=== PATIENT | female | born 1950 | race African-American/Black ===

== ENCOUNTER → 2017-05-16 | Outpatient (CLI) | payer OTHER ==
[2016-11-18 12:27] VITALS: BP 199/95
--- NOTE | 2017-05-16 12:48 | RAD ---
HISTORY: COPD Study: Chest two-view Comparison: November 23, 2016 Findings: The heart is within normal limits in size. The aorta is mildly ectatic. The shawna are normal. The luis enrique gs are free of acute alveolar infiltrates. No pleural effusions are identified. There is mild peribr onchial thickening consistent with bronchitis. The bony thorax is unremarkable peer E IMPRESSION: Mild peribronchial thickening consistent with bronchitis Reported By:
[2017-05-16 12:52] LABS: BASOPHILS % (AUTO) 0.8 % (0.2-1.0); EOSINOPHILS # (AUTO) 0.2 x10^3/uL (0.0-0.2); EOSINOPHILS % (AUTO) 2.8 % (0.9-2.9); HEMATOCRIT 41.6 % (36.0-47.0); HEMOGLOBIN 13.8 g/dL (12.0-16.0); LYMPHOCYTES # (AUTO) 1.7 X10^3/uL (1.3-2.9); LYMPHOCYTES % (AUTO) 30.4 % (21.0-51.0); MEAN CORPUSCULAR HEMOGLOBIN 27.9 pg (27.0-34.0); MEAN CORPUSCULAR HGB CONC 33.2 g/dL (33.0-35.0); MEAN CORPUSCULAR VOLUME 84.2 fL (80.0-100.0); MEAN PLATELET VOLUME 8.5 fL (7.4-11.0); MICROALBUMIN,URINE 35.5 mg/L; MONOCYTES # (AUTO) 0.5 x10^3/uL (0.3-0.8); MONOCYTES % (AUTO) 8.4 % (0.0-13.0); NEUTROPHILS # (AUTO) 3.3 x10^3/uL (2.2-4.8); NEUTROPHILS % (AUTO) 57.6 % (42.0-75.0); PLATELET COUNT 302 X10^3/uL (150.0-450.0); RED BLOOD COUNT 4.94 X10^6/uL (3.5-5.4); RED CELL DISTRIBUTION WIDTH 14.3 % (11.6-16.5); RETICULOCYTE % 0.53 % (0.8-2.2); WHITE BLOOD COUNT 5.7 X10^3/uL (3.6-10.0)
[2017-05-16 13:00] LABS: CREATININE,URINE 425.42 mg/dL (29-226)
[2017-05-16 13:07] LABS: ALANINE AMINOTRANSFERASE 20 Units/L (12-78); ALBUMIN 3.1 g/dL (3.4-5.0); ALKALINE PHOSPHATASE 67 Units/L (46-116); ASPARTATE AMINO TRANSFERASE 17 Units/L (15-37); BLOOD UREA NITROGEN 14 mg/dL (7-18); CALCIUM 9.4 mg/dL (8.5-10.1); CARBON DIOXIDE 32.1 mmol/L (21-32); CHLORIDE 105 mmol/L (98-107); CHOL/HDL RATIO 2.7 (0.0-5.0); CHOLESTEROL 154 mg/dL (0-200); COR CA(FOR HYPOALB) 10.1 mg/dL (8.5-10.1); COR NA(FOR HYPERGLY) 146 mmol/L (136-145); GLUCOSE 137 mg/dL (65-99); HDL CHOLESTEROL 57 mg/dL (40-60); SODIUM 145 mmol/L (136-145); T4 (THYROXINE) 8.2 ug/dL (4.7-13.3); TOTAL PROTEIN 8.8 g/dL (6.4-8.2); TRIGLYCERIDES 54 mg/dL (0-150); TSH (3RD GENERATION) 1.731 uIU/mL (0.358-3.74); eGFR BLACK RACES > 60 (>60); eGFR NON BLACK RACES > 60 (>60)
== END ==
LOC: LAB 11:58
PROVIDERS: ATTEND Nurse Practitioner Family
DX: E78.2 Mixed hyperlipidemia (principal); I10 Essential (primary) hypertension; J44.9 Chronic obstructive pulmonary disease, unspecified
CPT/HCPCS: 36415; 71020; 80053; 80061; 82043; 84436; 84443; 85025; 85045

== ENCOUNTER → 2017-05-18 | Outpatient (CLI) | payer OTHER ==
[2016-11-18 12:27] VITALS: BP 199/95
--- NOTE | 2017-05-18 13:03 | MG ---
Examination: Bilateral screening mammogram. Clinical history: Routine screening. Technique: Digital CC and MLO views of both breasts were obtained. Computer aided detection analysis was performed and used during the interpretation. Comparison: 05/05/2015. Findings: The breasts are composed predominantly of adipose tissue. A benign-appearing calcification is presen t in the left breast. Vascular calcifications are noted in the breasts bilaterally. No suspicious mass, area of architectural distortion or suspicious cluster of microcalcifications is noted. Impression: 1. No mammographic evidence of malignancy. BI-RADS category 2-benign findings. Recommend routine annual screening mammogram. Diagnostic CAD was utilized and reviewed. * 0 (ZERO) - ASSESSMENT INCOMPLETE; ADDITIONAL IMAGING IS NEEDED. * 0C - ASSESSMENT INCOMPLETE, NEEDS ADDITIONAL IMAGING EVALUATION AND/OR PRIOR MAMMOGRAMS FOR COMPAR SURESH. * 1/1 (ONE) - NEGATIVE. * 2/II (TWO) - BENIGN FINDINGS. * 3/III (THREE) - PROBABLY BENIGN FINDING; SHORT INTERVAL FOLLOW-UP SUGGESTED. * 4/IV (FOUR) - SUSPICIOUS ABNORMALITY; BIOPSY SHOULD BE CONSIDERED. * 5/V - HIGHLY SUSPICIOUS OF MALIGNANCY; BIOPSY SHOULD BE PERFORMED. * 6/IV - KNOWN BIOPSY PROVEN MALIGNANCY-APPROPRIATE ACTION SHOULD BE TAKEN. A NEGATIVE X-RAY REPORT SHOULD NOT DELAY BIOPSY IF A DOMINANT OR CLINICALLY SUSPICIOUS MASS IS PRESENT; 4 TO 8 PERCENT OF CANCERS ARE NOT IDENTIFIED BY X-RAY. A NEGATIVE REPORT MAY REINFORCE THE CLINICAL IMPRESSION. ADENOSIS AND DENSE BREASTS MAY OBSCURE AN UNDERLYING NEOPLASM. Reported By:
== END ==
LOC: RAD 09:58
PROVIDERS: ATTEND Nurse Practitioner Family
DX: Z12.31 Encounter for screening mammogram for malignant neoplasm of breast (principal)
CPT/HCPCS: 77067

== ENCOUNTER → 2017-06-20 | Outpatient (CLI) | payer OTHER ==
[2016-11-18 12:27] VITALS: BP 199/95
[2017-06-20 11:54] LABS: BASOPHILS # (AUTO) 0.1 X10^3/uL (0.0-0.1); BASOPHILS % (AUTO) 0.9 % (0.2-1.0); EOSINOPHILS # (AUTO) 0.1 x10^3/uL (0.0-0.2); EOSINOPHILS % (AUTO) 2.1 % (0.9-2.9); HEMATOCRIT 40.7 % (36.0-47.0); HEMOGLOBIN 13.5 g/dL (12.0-16.0); LYMPHOCYTES # (AUTO) 1.9 X10^3/uL (1.3-2.9); LYMPHOCYTES % (AUTO) 32.7 % (21.0-51.0); MEAN CORPUSCULAR HEMOGLOBIN 27.7 pg (27.0-34.0); MEAN CORPUSCULAR HGB CONC 33.2 g/dL (33.0-35.0); MEAN CORPUSCULAR VOLUME 83.7 fL (80.0-100.0); MEAN PLATELET VOLUME 8.8 fL (7.4-11.0); MONOCYTES # (AUTO) 0.4 x10^3/uL (0.3-0.8); MONOCYTES % (AUTO) 7.1 % (0.0-13.0); NEUTROPHILS # (AUTO) 3.4 x10^3/uL (2.2-4.8); NEUTROPHILS % (AUTO) 57.2 % (42.0-75.0); PLATELET COUNT 323 X10^3/uL (150.0-450.0); RED BLOOD COUNT 4.86 X10^6/uL (3.5-5.4); RED CELL DISTRIBUTION WIDTH 14.5 % (11.6-16.5); WHITE BLOOD COUNT 5.9 X10^3/uL (3.6-10.0)
[2017-06-20 12:01] LABS: HEMOGLOBIN A1C 6.5 % (4.5-6.2)
[2017-06-20 12:04] LABS: ALBUMIN 3.2 g/dL (3.4-5.0); BLOOD UREA NITROGEN 11 mg/dL (7-18); CALCIUM 9.2 mg/dL (8.5-10.1); CARBON DIOXIDE 30.6 mmol/L (21-32); CHLORIDE 105 mmol/L (98-107); COR CA(FOR HYPOALB) 9.8 mg/dL (8.5-10.1); COR NA(FOR HYPERGLY) 145 mmol/L (136-145); GLUCOSE 128 mg/dL (65-99); PHOSPHORUS 3.5 mg/dL (2.6-4.7); SODIUM 144 mmol/L (136-145); eGFR BLACK RACES > 60 (>60); eGFR NON BLACK RACES > 60 (>60)
--- NOTE | 2017-06-20 12:34 | US ---
STUDY: RENAL ULTRASOUND History: CKD. Comparison: None. Technique: Multiple corbett scale and color flow Doppler images of the kidneys were obtained. The rebeca on of the urinary bladder was evaluated. Findings: The right kidney is normal in size and echotexture measuring 9.5 x 4.5 x 6.6 cm. Right renal cortex measures 1.8 cm. There is no evidence of mass, nephrolithiasis, or hydronephrosis. The left kidney is decreased in size and normal in echotexture measuring 7.6 x 3.7 x 5.6 cm. Left re nal cortex measures 1.7 cm. There is no evidence of mass, nephrolithiasis, or hydronephrosis. Color flow imaging shows normal arterial and venous blood flow to and from both kidneys. The urinary bladder was incompletely distended. IMPRESSION: 1. Small left kidney. Otherwise, unremarkable renal ultrasound. Reported By:
[2017-06-20 15:44] LABS: CREATININE,URINE 259.51 mg/dL (29-226)
[2017-06-23 06:15] LABS: ALDOSTERONE 6.4 ng/dL; ANTI-NUCLEAR ANTIBODY TEST Detected (None Detected)
[2017-06-23 11:22] LABS: KAPPA LIGHT CHAINS 4.16 mg/dL (0.33-1.94); LAMBDA LIGHT CHAIN 2.97 mg/dL (0.57-2.63)
[2017-06-23 14:01] LABS: NORMETANEPHRINE 0.55
[2017-06-23 14:02] LABS: METANEPHRINE 0.11
[2017-06-26 06:47] LABS: ANA PATTERN SPECKLED
[2017-06-27 06:10] LABS: RENIN ACTIVITY <0.1 ng/mL/hr
== END | disposition home or self-care (01) | DRG 684 ==
LOC: RAD 10:47
PROVIDERS: ATTEND Internal Medicine
DX: I12.9 Hypertensive chronic kidney disease with stage 1 through stage 4 chronic kidney disease, or unspecified chronic kidney disease (principal); N18.3 Chronic kidney disease, stage 3 (moderate)
CPT/HCPCS: 36415; 76770; 80069; 82088; 82570; 83036; 83835; 83883; 84157; 84244; 85025; 86308

== ENCOUNTER → 2017-06-28 | Outpatient (CLI) | payer OTHER ==
[2016-11-18 12:27] VITALS: BP 199/95
== END ==
LOC: LAB 10:51
PROVIDERS: ATTEND Nurse Practitioner Family
DX: E87.6 Hypokalemia (principal)
CPT/HCPCS: 36415; 84132

== ENCOUNTER → 2017-07-03 | Outpatient (CLI) | payer OTHER ==
[2016-11-18 12:27] VITALS: BP 199/95
== END ==
LOC: LAB 09:00
PROVIDERS: ATTEND Nurse Practitioner Family
DX: E87.6 Hypokalemia (principal)
CPT/HCPCS: 36415; 84132

== ENCOUNTER → 2017-08-04 | Outpatient (CLI) | payer OTHER, MEDICAID ==
[2016-11-18 12:27] VITALS: BP 199/95
--- NOTE | 2017-08-04 13:16 | RAD ---
HISTORY: Low back pain Study: AP and lateral lumbar spine Comparison: April 28, 2015 Findings: The alignment is normal. The vertebral bodies are of average height. Degenerative disc disease is pre sent at L1-2, L4-5, L5-S1. Diffuse bilateral facet degenerative joint disease is present. Diffuse spo ndylitic changes present. IMPRESSION: Multilevel degenerative disc disease as described above Diffuse bilateral facet degenerative joint disease Spondylosis Reported By:
== END | disposition home or self-care (01) | DRG 641 ==
LOC: LAB 10:18
PROVIDERS: ATTEND Nurse Practitioner Family
DX: E87.6 Hypokalemia (principal); M54.5 Low back pain; M47.897 Other spondylosis, lumbosacral region; M47.896 Other spondylosis, lumbar region; M51.36 Other intervertebral disc degeneration, lumbar region
CPT/HCPCS: 36415; 72100; 84132

== ENCOUNTER → 2017-08-25 | Outpatient (CLI) | payer OTHER, MEDICAID ==
[2016-11-18 12:27] VITALS: BP 199/95
[2017-08-25 11:48] LABS: BASOPHILS # (AUTO) 0.1 X10^3/uL (0.0-0.1); EOSINOPHILS # (AUTO) 0.2 x10^3/uL (0.0-0.2); EOSINOPHILS % (AUTO) 3.6 % (0.9-2.9); HEMATOCRIT 38.6 % (36.0-47.0); LYMPHOCYTES # (AUTO) 1.7 X10^3/uL (1.3-2.9); LYMPHOCYTES % (AUTO) 28.6 % (21.0-51.0); MEAN CORPUSCULAR HEMOGLOBIN 28.2 pg (27.0-34.0); MEAN CORPUSCULAR HGB CONC 33.8 g/dL (33.0-35.0); MEAN CORPUSCULAR VOLUME 83.3 fL (80.0-100.0); MONOCYTES # (AUTO) 0.4 x10^3/uL (0.3-0.8); MONOCYTES % (AUTO) 6.4 % (0.0-13.0); NEUTROPHILS # (AUTO) 3.6 x10^3/uL (2.2-4.8); NEUTROPHILS % (AUTO) 60.4 % (42.0-75.0); PLATELET COUNT 293 X10^3/uL (150.0-450.0); RED BLOOD COUNT 4.63 X10^6/uL (3.5-5.4); RED CELL DISTRIBUTION WIDTH 14.8 % (11.6-16.5)
[2017-08-25 12:05] LABS: BLOOD UREA NITROGEN 12 mg/dL (7-18); CALCIUM 9.2 mg/dL (8.5-10.1); CARBON DIOXIDE 25.8 mmol/L (21-32); CHLORIDE 105 mmol/L (98-107); COR NA(FOR HYPERGLY) 139 mmol/L (136-145); CREATININE 1.06 mg/dL (0.55-1.02); HEMOGLOBIN A1C 6.9 % (4.5-6.2); PHOSPHORUS 3.4 mg/dL (2.6-4.7); SODIUM 138 mmol/L (136-145); URIC ACID 7.4 mg/dL (2.6-6.0); eGFR BLACK RACES > 60 (>60); eGFR NON BLACK RACES 55 (>60)
== END ==
LOC: LAB 11:07
PROVIDERS: ATTEND Internal Medicine
DX: I12.9 Hypertensive chronic kidney disease with stage 1 through stage 4 chronic kidney disease, or unspecified chronic kidney disease (principal); N18.3 Chronic kidney disease, stage 3 (moderate); E11.29 Type 2 diabetes mellitus with other diabetic kidney complication
CPT/HCPCS: 36415; 80069; 82985; 83036; 84550; 85025

== ENCOUNTER → 2017-08-30 | Outpatient (CLI) | payer OTHER, MEDICAID ==
[2016-11-18 12:27] VITALS: BP 199/95
== END ==
LOC: LAB 12:16
PROVIDERS: ATTEND Nurse Practitioner Family
DX: E87.6 Hypokalemia (principal)
CPT/HCPCS: 36415; 84132

== ENCOUNTER → 2017-10-06 | Outpatient (CLI) | payer OTHER, MEDICAID ==
[2016-11-18 12:27] VITALS: BP 199/95
[2017-10-06 11:10] LABS: HEMOGLOBIN A1C 6.2 % (4.5-6.2)
[2017-10-06 11:13] LABS: CREATININE,URINE 232.76 mg/dL (29-226); MICROALBUMIN,URINE 42.9 mg/L
--- NOTE | 2017-10-06 11:35 | RAD ---
HISTORY: Numbness of fingers. Neck. Study: Cervical spine with obliques. Moderately severe artifact is present secondary to the patient' s hair. Comparison: None Findings: The lateral view and swimmer's view demonstrates loss of normal cervical lordosis. Otherwise of sabina l alignment from C1 through T1. Moderate to moderately severe disc space narrowing is noted at C4/C5, C5/C6 and C6/C7. Small anterior spurs present at multiple levels. The posterior elements are intact. The pre odontoid space is normal. The prevertebral soft tissues are normal. There appears be moderat e foraminal stenosis on the right at C4/C5. Moderate facet arthropathy is noted at multiple levels wi th moderate uncovertebral joint arthropathy. The lateral masses of C1 are symmetric about the lateral masses of C2 and the odontoid process. IMPRESSION: 1. Cervical spondylosis as described above. 2. Loss of normal cervical lordosis which may be seen in normal individuals, be positional secondary to muscle spasm. 3. No acute bony abnormalities are identified. Reported By:
[2017-10-06 11:38] LABS: BASOPHILS # (AUTO) 0.1 X10^3/uL (0.0-0.1); EOSINOPHILS # (AUTO) 0.2 x10^3/uL (0.0-0.2); EOSINOPHILS % (AUTO) 2.5 % (0.9-2.9); HEMATOCRIT 40.6 % (36.0-47.0); HEMOGLOBIN 13.4 g/dL (12.0-16.0); LYMPHOCYTES # (AUTO) 2.5 X10^3/uL (1.3-2.9); LYMPHOCYTES % (AUTO) 33.7 % (21.0-51.0); MEAN CORPUSCULAR HEMOGLOBIN 28.1 pg (27.0-34.0); MEAN CORPUSCULAR HGB CONC 32.9 g/dL (33.0-35.0); MEAN CORPUSCULAR VOLUME 85.4 fL (80.0-100.0); MEAN PLATELET VOLUME 9.4 fL (7.4-11.0); MONOCYTES # (AUTO) 0.6 x10^3/uL (0.3-0.8); MONOCYTES % (AUTO) 8.1 % (0.0-13.0); NEUTROPHILS # (AUTO) 4.1 x10^3/uL (2.2-4.8); NEUTROPHILS % (AUTO) 54.7 % (42.0-75.0); RED BLOOD COUNT 4.75 X10^6/uL (3.5-5.4); RED CELL DISTRIBUTION WIDTH 14.2 % (11.6-16.5); WHITE BLOOD COUNT 7.5 X10^3/uL (3.6-10.0)
[2017-10-06 11:40] LABS: ALBUMIN 2.8 g/dL (3.4-5.0); BLOOD UREA NITROGEN 14 mg/dL (7-18); CALCIUM 9.7 mg/dL (8.5-10.1); CARBON DIOXIDE 26.4 mmol/L (21-32); CHLORIDE 106 mmol/L (98-107); CHOL/HDL RATIO 2.4 (0.0-5.0); CHOLESTEROL 143 mg/dL (0-200); COR CA(FOR HYPOALB) 10.7 mg/dL (8.5-10.1); CREATININE 0.76 mg/dL (0.55-1.02); HDL CHOLESTEROL 59 mg/dL (40-60); PHOSPHORUS 3.4 mg/dL (2.6-4.7); SODIUM 140 mmol/L (136-145); TRIGLYCERIDES 49 mg/dL (0-150); eGFR BLACK RACES > 60 (>60); eGFR NON BLACK RACES > 60 (>60)
[2017-10-06 11:48] LABS: PLATELET MORPHOLOGY COMMENT NORMAL (NORMAL)
[2017-10-06 11:53] LABS: PLATELET COUNT 238 X10^3/uL (150.0-450.0)
== END ==
LOC: LAB 10:11
PROVIDERS: ATTEND Nurse Practitioner Family
DX: I12.9 Hypertensive chronic kidney disease with stage 1 through stage 4 chronic kidney disease, or unspecified chronic kidney disease (principal); E11.22 Type 2 diabetes mellitus with diabetic chronic kidney disease; N18.3 Chronic kidney disease, stage 3 (moderate); E78.2 Mixed hyperlipidemia; R20.0 Anesthesia of skin; M47.892 Other spondylosis, cervical region
CPT/HCPCS: 36415; 72050; 80048; 80061; 80069; 82043; 83036; 85025

== ENCOUNTER → 2017-10-30 | Outpatient (CLI) | payer OTHER, MEDICAID ==
[2016-11-18 12:27] VITALS: BP 199/95
--- NOTE | 2017-10-30 17:00 | MRI ---
HISTORY: Neck pain and cervical radiculopathy. Noncontrast MRI examination of the cervical spine. Technique: Sagittal T1, sagittal T2, axial T2 weighted images were obtained. Findings: There is straightening of the normal cervical lordosis. There is moderate to severe spondyl osis and facet DJD seen from C3-C7 with multilevel disc osteophyte complexes and diffuse cervical dis c desiccation. There is no evidence for an acute fracture or subluxation. No aggressive bone marrow l esion is seen. There is no evidence for cerebral tonsillar ectopia. The posterior elements appear dif fusely intact. There is no evidence for cord expansion, cord edema, or abnormal cord signal. No intra thecal mass lesions or intrathecal hemorrhage is seen. C2 -- C3: No significant disc pathology or foraminal/spinal canal stenosis. C3 -- C4: Broad-based, posterior, disc osteophyte complex which combines with facet DJD to create mod erate spinal canal stenosis and moderate bilateral foraminal narrowing. C4 -- C5: Broad-based, posterior, disc osteophyte complex which combines with facet DJD to create sev ere central spinal canal stenosis and severe bilateral foraminal narrowing/impingement. C5 -- C6: Broad-based, posterior, disc osteophyte complex which combines with facet DJD to create sev ere central spinal canal stenosis and severe bilateral foraminal narrowing. C6 -- C7: Broad-based, posterior, disc osteophyte complex which combines with facet DJD to create mod erate spinal canal stenosis and moderate bilateral foraminal narrowing. C7 -- T1: Broad-based, posterior, disc osteophyte complex which combines with facet DJD to create mod erate spinal canal stenosis and moderate bilateral foraminal narrowing. IMPRESSION: Moderate to severe cervical spondylosis with C3-C7 central disc osteophyte complexes and facet joint DJD which creates moderate to severe foraminal and spinal canal stenosis at these levels, as detailed above. These degenerative cervical stenotic findings are most severe at the level of C4-5 where ther e is suspected/likely neural impingement of the exiting nerve roots at this level. No evidence for ce rvical cord myelomalacia, however. Reported By:
== END ==
LOC: RAD 13:41
PROVIDERS: ATTEND Nurse Practitioner Family
DX: R20.0 Anesthesia of skin (principal); M47.892 Other spondylosis, cervical region
CPT/HCPCS: 72141

== ENCOUNTER → 2017-11-01 | Outpatient (CLI) | payer OTHER, MEDICAID ==
[2016-11-18 12:27] VITALS: BP 199/95
== END ==
LOC: RT 08:07
PROVIDERS: ATTEND Nurse Practitioner Family
DX: R20.0 Anesthesia of skin (principal)
CPT/HCPCS: 95909

== ENCOUNTER → 2017-11-16 | Outpatient (CLI) | payer OTHER, MEDICAID ==
[2016-11-18 12:27] VITALS: BP 199/95
[2017-11-16 11:32] LABS: CREATININE 0.74 mg/dL (0.55-1.02)
--- NOTE | 2017-11-16 13:11 | RAD ---
Examination: Chest, PA and lateral views History: Cardiomegaly, hypertension and asthma Comparison reference 05/16/2017 Findings: Heart size remains upper normal with arteriosclerotic aortic dilatation. The mediastinum is widened as well. The lungs are clear and there is no evidence for pneumonia or significant pleural e ffusion. Impression: Stable upper normal heart size with no acute pulmonary abnormality. Prominence of the sup erior mediastinum may be related to vascular dilatation in this patient with hypertension. The possib ility of thyroid enlargement or other neck mass formation should be clinically considered. Reported By:
--- NOTE | 2017-11-21 09:22 | CT ---
HISTORY: Chronic left hip pain, arthritis Study: CT of the left hip with contrast Comparison: None Technique: Multiple axial images were obtained with administration of IV contrast. Sagittal and kingsley nal reformats were performed and reviewed. Dose reduction techniques including Automated Exposure Con trol (AEC) and adjustment of mA and kV were utilized. Findings: There are advanced degenerative changes of the visualized lumbosacral spine. There are [id number] te arthritic changes of the left hip joint without acute fracture or dislocation. There is no signifi cant joint effusion or other fluid collection seen. Incidental note of colonic diverticulosis. No sapna e fluid is seen within the visualized pelvis. The surrounding soft tissues are unremarkable. IMPRESSION: 1. Mild to moderate arthritic changes of the left hip without acute osseous abnormality. Reported By:
== END | disposition home or self-care (01) ==
LOC: RAD 10:53
PROVIDERS: ATTEND Nurse Practitioner Family
DX: M13.852 Other specified arthritis, left hip (principal); M25.552 Pain in left hip; R06.02 Shortness of breath
CPT/HCPCS: 36415; 71020; 73701; 82565; 84520; A4222

== ENCOUNTER → 2018-01-22 | Outpatient (CLI) | payer OTHER ==
[2016-11-18 12:27] VITALS: BP 199/95
== END ==
LOC: LAB 08:32
PROVIDERS: ATTEND Nurse Practitioner Family
DX: R76.0 Raised antibody titer (principal); R79.89 Other specified abnormal findings of blood chemistry; M54.5 Low back pain
CPT/HCPCS: 36415; 84155; 84166; 86812

== ENCOUNTER 2018-02-19 13:36 | Observation (INO) | payer OTHER ==
--- NOTE | 2018-02-19 13:55 | DR.CP ---
HPI - Time Seen Time seen: 13:45 - PCP Primary Care Physician: MIREILLE POLANCO - HPI Comment HPI Comment: PRECORDIAL CHEST PAIN RADIATING TO LEFT SHOULDER AND ARM THAT IS INTERMITTENT TIMES 3 DAYS. PAIN ASSOCIATED WITH WEAKNESS, SOB AND DIZZINESS. PAIN WORSE TODAY. - Complaint Chief Complaint Doctor Comments: CHEST PAIN Chief Complaint:: PT. C/O LEFT SIDED CHEST PAIN X 3 DAYS THAT IS HEAVY AND CONTINUOUS IN NATURE. PAIN RADIATES TO LEFT SHOULDER AND UNDER LEFT ARM. PT. ALSO C/O SHORTNESS OF BREATH. - Reviewed Nurses Notes Review: Yes - Source History Provided: Patient - Mode of Arrival Mode of Arrival: Ambulatory - Timing Onset of Chief Complaint: 02/16/18 Came on: Suddenly - Duration Duration: Intermittent Duration: Days - Location Location of Chest Pain: Left, Chest Chest Pain Radiation Location: Left Arm, Left Shoulder - Context Onset: At rest, With light exertion Cardiac Risk Factors: HTN PE Risk Factors: None History of: None Prehospital Care: None - Quality Quality: Heavy - Severity Severity: Moderate - Modifying Factors Worsens: Nothing Impoves: Nothing - Associated Signs and Symptoms Associated Signs and Symptoms: Shortness of Breath PMH - PMH Past Medical History: Yes Past Medical History: Arthritis, Hypertension Past Surgical History: No Surgical History: No History - Family History History of Family Medical Conditions: Yes Family Medical History: Diabetes Mellitus, Cancer - Social History Does patient currently use any type of tobacco product: No Have you used tobacco products in the last 12 months: No Type of Tobacco Use: None Does any household member use tobacco: No Alcohol Use: None Do you use any recreational Drugs:: No Lives With: Alone Lives Where: Home - infectious screening In the last 2 months have you had wt loss of >10#?: NO Have you had fever, night sweats or hemotysis?: No Have you traveled outside the country in the last 6 months?: No Isolation: Standard ROS - Review of Systems Constitutional: Weakness, Fatigue. negative: Chills, Fever, Loss of Appetite Eyes: No Symptoms Reported ENTM: No Symptoms Reported. negative: Ear Pain, Nose Discharge, Nose Congestion , Throat Pain Respiratoy: No Symptoms Reported Cardiovascular: Chest Pain Gastrointestinal/Abdominal: No Symptoms Reported Genitourinary: No Symptoms Reported Neurological: No Symptoms Reported Musculoskeletal: No Symptoms Reported Integumentary: No Symptoms Reported Hematologic/Lymphatic: No Symptoms Reported Endocrine: No Symptoms Reported All Other Systems: Reviewed and Negative PE - Vitals Vitals: Temperature 98.9 F Pulse Rate [Apical] 57 Pulse Rate 63 Respiratory Rate 20 Blood Pressure [Right Arm] 128/63 Blood Pressure 218/95 O2 Sat by Pulse Oximetry 100 - General Limitations: No Limitations General Appearance: Alert - Head Head Exam: Normal Inspection - Eyes Eye exam: Normal Appearance - ENT ENT Exam: Normal External Ear Exam - Chest Chest Inspection: Symmetric Chest Wall Rise - Respiratory Respiratory Exam: Normal Lung Sounds Bilat Respiratory Exam: Bilateral Clear to Auscultation - Cardiovascular Cardiovascular Exam: Regular Rate, Normal Rhythm, Normal Heart Sounds Pulse: Normal, Radial, Femoral Edema: Normal - Abdominal Exam Abdominal Exam: Normal Bowel Sounds, Soft. negative: Tenderness - Extremities Extremities Exam: Normal Inspection - Back Back Exam: Normal Inspection - Neurologic Neurological Exam: Alert, Oriented X3, CN II-XII Intact, Normal Gait, Reflexes Normal. negative: Motor Sensory Deficit - Psychiatric Psychiatric Exam: Normal Affect, Normal Mood - Skin Skin Exam: Normal Color MDM - Additional Information Additional Information Obtained From: Family - Differential Diagnosis Differential Diagnosis: Angina, Cholelithasis, CHF, Costochondritis, Esophageal Reflux/Spasm, Gastritis, Myocardial Infarction, Pericarditis, Pleuritis, Pancreatitis, Pneumonia, Pneumothorax, Pulmonary Embolus Course - Treatment Treatment: SEE ORDERS. - Education/Counseling Education/Counseling: Patient, Family, Education Educated On: Diagnosis ROR - Labs Reviewed Laboratory Results Reviewed?: Yes Result Diagrams: 02/20/18 06:15 02/20/18 06:15 Laboratory: WBC 6.1 X10^3/uL (3.6-10.0) 02/20/18 06:15 RBC 4.33 X10^6/uL (3.5-5.4) 02/20/18 06:15 Hgb 12.0 g/dL (12.0-16.0) 02/20/18 06:15 Hct 36.1 % (36.0-47.0) 02/20/18 06:15 MCV 83.4 fL (80.0-100.0) 02/20/18 06:15 MCH 27.8 pg (27.0-34.0) 02/20/18 06:15 MCHC 33.3 g/dL (33.0-35.0) 02/20/18 06:15 RDW 14.6 % (11.6-16.5) 02/20/18 06:15 Plt Count 284 X10^3/uL (150.0-450.0) 02/20/18 06:15 MPV 8.1 fL (7.4-11.0) 02/20/18 06:15 Neut % (Auto) 51.7 % (42.0-75.0) 02/20/18 06:15 Lymph % (Auto) 37.3 % (21.0-51.0) 02/20/18 06:15 [place] % (Auto) 7.4 % (0.0-13.0) 02/20/18 06:15 Eos % (Auto) 2.7 % (0.9-2.9) 02/20/18 06:15 Baso % (Auto) 0.9 % (0.2-1.0) 02/20/18 06:15 Neut # (Auto) 3.2 x10^3/uL (2.2-4.8) 02/20/18 06:15 Lymph # (Auto) 2.3 X10^3/uL (1.3-2.9) 02/20/18 06:15 [place] # (Auto) 0.5 x10^3/uL (0.3-0.8) 02/20/18 06:15 Eos # (Auto) 0.2 x10^3/uL (0.0-0.2) 02/20/18 06:15 Baso # (Auto) 0.1 X10^3/uL (0.0-0.1) 02/20/18 06:15 Absolute Nucleated RBC 0.0 /100WBC 02/20/18 06:15 D-Dimer 898 ng/mL (0-400) H* 02/19/18 14:25 Sodium 142 mmol/L (136-145) 02/20/18 06:15 Corrected Sodium TNP 02/20/18 06:15 Potassium 3.5 mmol/L (3.5-5.1) 02/20/18 06:15 Chloride 107 mmol/L (98-107) 02/20/18 06:15 Carbon Dioxide 27.7 mmol/L (21-32) 02/20/18 06:15 BUN 17 mg/dL (7-18) 02/20/18 06:15 Creatinine 0.79 mg/dL (0.55-1.02) 02/20/18 06:15 Est GFR (MDRD) Af Amer > 60 (>60) 02/20/18 06:15 Est GFR (MDRD) Non-Af > 60 (>60) 02/20/18 06:15 Glucose 89 mg/dL (65-99) 02/20/18 06:15 Calcium 8.6 mg/dL (8.5-10.1) 02/20/18 06:15 Corrected Calcium 9.6 mg/dL (8.5-10.1) 02/20/18 06:15 Magnesium 1.9 mg/dL (1.7-2.9) 02/20/18 06:15 Total Bilirubin 0.30 mg/dL (0.2-1.0) 02/20/18 06:15 AST 15 Units/L (15-37) 02/20/18 06:15 ALT 16 Units/L (12-78) 02/20/18 06:15 Alkaline Phosphatase 70 Units/L (46-116) 02/20/18 06:15 Creatine Kinase 71 Units/L (26-192) 02/20/18 06:15 CK-MB (CK-2) 1.1 ng/mL (0-4.0) 02/20/18 06:15 CK/CKMB % Calc 1.6 % (<4) 02/20/18 06:15 Troponin I 0.05 ng/mL (0-1.5) 02/20/18 06:15 B-Natriuretic Peptide 28.6 pg/mL (0-79) 02/19/18 14:25 Total Protein 7.4 g/dL (6.4-8.2) 02/20/18 06:15 Albumin 2.8 g/dL (3.4-5.0) L 02/20/18 06:15 Globulin 4.6 g/dL (2.5-4.5) H 02/20/18 06:15 Albumin/Globulin Ratio 0.6 Ratio (1.1-2.1) L 02/20/18 06:15 Triglycerides 38 mg/dL (0-150) 02/20/18 06:15 Cholesterol 115 mg/dL (0-200) 02/20/18 06:15 LDL Cholesterol, Calc 63 mg/dL (0-100) 02/20/18 06:15 HDL Cholesterol 44 mg/dL (40-60) 02/20/18 06:15 Cholesterol/HDL Ratio 2.6 (0.0-5.0) 02/20/18 06:15 - XRAY XRAY Interpreted by: Radiologist XRAY Findings: REPORT DISCUSS WITH PPATIENT. - EKG Rhythm: NSR (EKG NOTED) - Diagnosis Discharge Problem: Chest pain Qualifiers: Chest pain type: precordial pain Qualified Code(s): R07.2 - Precordial pain Hypertension Qualifiers: Hypertension type: essential hypertension Qualified Code(s): I10 - Essential ( primary) hypertension - Discharge Plan Disposition: ADMITTED INPATIENT Condition: Stable - Follow ups/Referrals - Instructions
[2018-02-19] MEDS ORDERED: ASPIRIN 81 MG CHEWTAB PO ONE (13:57)
[2018-02-19] MEDS ORDERED: ASPIRIN 81 MG CHEWTAB ONE (14:00)
[2018-02-19] MEDS: NITROSTAT SL PRN ×3 (14:06→14:22)
[2018-02-19 14:39] LABS: B-TYPE NATRIURETIC PEPTIDE 28.6 pg/mL (0-79)
--- NOTE | 2018-02-19 14:48 | RAD ---
Indication: Chest pain Exam: Portable chest Comparison: 11/16/2017 Findings: The heart is normal. The pulmonary vessels are normal. There is overlying EKG lead artifact . No consolidation or effusion is seen. The bones are intact. Impression: Overlying EKG lead artifact otherwise, stable with no acute abnormality seen. Reported By:
[2018-02-19 14:49] LABS: BASOPHILS % (AUTO) 0.8 % (0.2-1.0); EOSINOPHILS # (AUTO) 0.1 x10^3/uL (0.0-0.2); EOSINOPHILS % (AUTO) 2.3 % (0.9-2.9); HEMATOCRIT 39.7 % (36.0-47.0); HEMOGLOBIN 13.2 g/dL (12.0-16.0); LYMPHOCYTES # (AUTO) 1.6 X10^3/uL (1.3-2.9); LYMPHOCYTES % (AUTO) 28.8 % (21.0-51.0); MEAN CORPUSCULAR HEMOGLOBIN 27.7 pg (27.0-34.0); MEAN CORPUSCULAR HGB CONC 33.2 g/dL (33.0-35.0); MEAN CORPUSCULAR VOLUME 83.5 fL (80.0-100.0); MEAN PLATELET VOLUME 8.3 fL (7.4-11.0); MONOCYTES # (AUTO) 0.4 x10^3/uL (0.3-0.8); NEUTROPHILS # (AUTO) 3.4 x10^3/uL (2.2-4.8); NEUTROPHILS % (AUTO) 61.1 % (42.0-75.0); PLATELET COUNT 306 X10^3/uL (150.0-450.0); RED BLOOD COUNT 4.75 X10^6/uL (3.5-5.4); RED CELL DISTRIBUTION WIDTH 14.6 % (11.6-16.5); WHITE BLOOD COUNT 5.5 X10^3/uL (3.6-10.0)
[2018-02-19 15:05] LABS: ALANINE AMINOTRANSFERASE 17 Units/L (12-78); ALBUMIN 3.2 g/dL (3.4-5.0); ALKALINE PHOSPHATASE 81 Units/L (46-116); ASPARTATE AMINO TRANSFERASE 14 Units/L (15-37); BLOOD UREA NITROGEN 14 mg/dL (7-18); CARBON DIOXIDE 29.2 mmol/L (21-32); CHLORIDE 104 mmol/L (98-107); COR CA(FOR HYPOALB) 9.6 mg/dL (8.5-10.1); CREATINE KINASE 98 Units/L (26-192); CREATININE 0.78 mg/dL (0.55-1.02); SODIUM 141 mmol/L (136-145); TOTAL PROTEIN 8.8 g/dL (6.4-8.2); TROPONIN I 0.06 ng/mL (0-1.5); eGFR BLACK RACES > 60 (>60); eGFR NON BLACK RACES > 60 (>60)
[2018-02-19] MEDS ORDERED: NS 100 ML IV 100 ML IV ONE (15:14)
[2018-02-19] MEDS ORDERED: CATAPRES TAB 0.2 MG PO ONE (15:56)
[2018-02-19] MEDS ORDERED: CATAPRES TAB 0.2 MG ONE (15:58)
--- NOTE | 2018-02-19 16:05 | CT ---
HISTORY: Left-sided chest pain and shortness of breath. Study: CT chest with contrast Comparison: Chest x-ray dated same day and CT chest dated April 02, 2012. Technique: Multiple axial images of the chest were obtained from the thoracic inlet to the upper abdo men after the administration of IV contrast. MIP images were obtained. Dose reduction techniques incl uding Automated Exposure Control (AEC) and adjustment of mA and kV were utilized. Findings: The mediastinum does not demonstrate significant pathological lymphadenopathy. There is no paracardi al effusion observed. The thoracic aorta is normal in its contour without evidence for aneurysmal di latation. The central pulmonary arterial system does not demonstrate central filling defects to sugg est pulmonary emboli. Cardiomegaly. Coronary artery and thoracic aorta calcifications appear unchange d given technique. Bibasilar scarring versus atelectasis. No obvious pulmonary nodule, mass, pleural effusion, focal con solidation, or pneumothorax. The upper abdominal structures are unremarkable. Degenerative changes of the spine and shoulders. No aggressive osseous lesions. IMPRESSION: 1. No CT evidence of acute thoracic pathology or pulmonary embolus. 2. Other chronic findings as above. Reported By:
[2018-02-19 17:59] LABS: CKMB % 1.1 % (<4); CREATINE KINASE 89 Units/L (26-192); CREATINE KINASE MB < 1.0 ng/mL (0-4.0); TROPONIN I 0.05 ng/mL (0-1.5)
[2018-02-19 19:38] VITALS: BMI 39.8
[2018-02-19] MEDS ORDERED: NEURONTIN CAP 300 MG PO SCH (21:00)
[2018-02-19 23:03] LABS: CKMB % 1.3 % (<4); CREATINE KINASE 76 Units/L (26-192); CREATINE KINASE MB < 1.0 ng/mL (0-4.0); TROPONIN I 0.05 ng/mL (0-1.5)
[2018-02-20 06:39] LABS: BASOPHILS # (AUTO) 0.1 X10^3/uL (0.0-0.1); BASOPHILS % (AUTO) 0.9 % (0.2-1.0); EOSINOPHILS # (AUTO) 0.2 x10^3/uL (0.0-0.2); EOSINOPHILS % (AUTO) 2.7 % (0.9-2.9); HEMATOCRIT 36.1 % (36.0-47.0); LYMPHOCYTES # (AUTO) 2.3 X10^3/uL (1.3-2.9); LYMPHOCYTES % (AUTO) 37.3 % (21.0-51.0); MEAN CORPUSCULAR HEMOGLOBIN 27.8 pg (27.0-34.0); MEAN CORPUSCULAR HGB CONC 33.3 g/dL (33.0-35.0); MEAN CORPUSCULAR VOLUME 83.4 fL (80.0-100.0); MEAN PLATELET VOLUME 8.1 fL (7.4-11.0); MONOCYTES # (AUTO) 0.5 x10^3/uL (0.3-0.8); MONOCYTES % (AUTO) 7.4 % (0.0-13.0); NEUTROPHILS # (AUTO) 3.2 x10^3/uL (2.2-4.8); NEUTROPHILS % (AUTO) 51.7 % (42.0-75.0); PLATELET COUNT 284 X10^3/uL (150.0-450.0); RED BLOOD COUNT 4.33 X10^6/uL (3.5-5.4); RED CELL DISTRIBUTION WIDTH 14.6 % (11.6-16.5); WHITE BLOOD COUNT 6.1 X10^3/uL (3.6-10.0)
[2018-02-20 06:57] LABS: ALANINE AMINOTRANSFERASE 16 Units/L (12-78); ALBUMIN 2.8 g/dL (3.4-5.0); ALKALINE PHOSPHATASE 70 Units/L (46-116); ASPARTATE AMINO TRANSFERASE 15 Units/L (15-37); BLOOD UREA NITROGEN 17 mg/dL (7-18); CALCIUM 8.6 mg/dL (8.5-10.1); CARBON DIOXIDE 27.7 mmol/L (21-32); CHLORIDE 107 mmol/L (98-107); CHOL/HDL RATIO 2.6 (0.0-5.0); CHOLESTEROL 115 mg/dL (0-200); COR CA(FOR HYPOALB) 9.6 mg/dL (8.5-10.1); CREATININE 0.79 mg/dL (0.55-1.02); HDL CHOLESTEROL 44 mg/dL (40-60); MAGNESIUM 1.9 mg/dL (1.7-2.9); SODIUM 142 mmol/L (136-145); TOTAL PROTEIN 7.4 g/dL (6.4-8.2); TRIGLYCERIDES 38 mg/dL (0-150); eGFR BLACK RACES > 60 (>60); eGFR NON BLACK RACES > 60 (>60)
[2018-02-20 07:25] LABS: CKMB % 1.6 % (<4); CREATINE KINASE MB 1.1 ng/mL (0-4.0); TROPONIN I 0.05 ng/mL (0-1.5)
[2018-02-20 08:02] VITALS: BP 128/60
[2018-02-20] MEDS ORDERED: ALDACTONE TAB 25 MG PO SCH (09:00)
[2018-02-20] MEDS ORDERED: LIPITOR TAB 10 MG PO SCH (09:00)
[2018-02-20] MEDS ORDERED: PEPCID TAB 20 MG PO SCH (09:00)
[2018-02-20] MEDS ORDERED: XALATAN EACHEYE SCH (09:00)
[2018-02-20] MEDS ORDERED: PLAQUENIL PO SCH (09:00)
[2018-02-20] MEDS ORDERED: CELEBREX PO SCH (09:00)
[2018-02-20] MEDS ORDERED: PROCARDIA XL PO SCH (09:00)
[2018-02-20] MEDS ORDERED: GLUCOTROL XL PO SCH (09:00)
[2018-02-20] MEDS ORDERED: LOVASTATIN PO SCH (09:00)
[2018-02-20] MEDS ORDERED: FAMOTIDINE 40 MG PO SCH (09:00)
[2018-02-20] MEDS ORDERED: ASPIRIN EC 81 MG PO SCH (09:00)
== END 2018-02-20 11:35 | disposition home or self-care (01) ==
LOC: ER 13:49 → OBS 18:36
PROVIDERS: ADMIT Obstetrics & Gynecology Obstetrics; ATTEND Obstetrics & Gynecology Obstetrics
DX: R07.2 Precordial pain (principal); I10 Essential (primary) hypertension; R53.1 Weakness; R06.02 Shortness of breath; M25.512 Pain in left shoulder; M79.602 Pain in left arm; R94.31 Abnormal electrocardiogram [ECG] [EKG]; E11.65 Type 2 diabetes mellitus with hyperglycemia; M13.80 Other specified arthritis, unspecified site; Z79.899 Other long term (current) drug therapy
CPT/HCPCS: 36415; 71045; 71275; 80053; 80061; 82550; 82553; 83735; 83880; 84484; 85025; 85378; 93005; 93010; 94760; 96365; 96374; 99284; A4216; A4222; G0378

== ENCOUNTER 2019-12-27 10:24 | Inpatient (IN) ==
[2019-12-27 10:39] VITALS: BMI 42.5
[2019-12-27] MEDS ORDERED: DUONEB 0.5 MG/3 MG (3 mL) NEB ONE ×2 (11:10→11:19)
[2019-12-27] MEDS ORDERED: SOLU-Medrol 125 MG VIAL IVP ONE (11:10)
--- NOTE | 2019-12-27 11:12 | DR.SOBA ---
HPI Time Seen Time Seen by Provider: 12/27/19 11:02 Primary Care Physician Primary Care Physician: TALAT HPI Comment HPI Comment: N and V. Coughing and SOB Complaints Chief Complaint Doctors Comments: She has been getting more SOB and wheezing for a week. Exposed to daughter with pneumonia and hospitalized in [place]. Chief Complaint:: PT C/O NAUSEA AND STOMACH ISSUES. DIARRHEA. PT HAS SWEAT ON FOREHEAD, DENIES CHEST PAIN OR ANY PAIN. BORDER LINE DM Self Treatment fo Chief Complaint: MY DAUGHTER WAS IN [facility] WITH PNUEMONIA, I GOT SICK WHILE IN HOSPITAL WITH MY DAUGHTER Reviewed Nurses Notes Reviewed: Yes Source History Provided: Patient Mode of Arrival Mode of Arrival: Ambulatory Timing Onset of Chief Complaint: 12/23/19 Context Onset:: At Rest PE Risk Factors:: None History of:: None and Asthma; denies COPD, CHF and DVT/PE Modifying Factors Worsens:: Exertion Improves:: Nothing Associated Signs and Symptoms Associated Signs and Symptoms: Fever, Wheeze, Cough and Nasal Congestion; denies Hemoptysis and Chest Pain If Cough Cough: Productive and Yellow PMH PMH Past Medical History: Yes Past Medical History: Arthritis, Asthma and Hypertension Past Medical History Comment: borderline DM Past Surgical History: No Family History History of Family Medical Conditions: Yes Family Medical History: Diabetes Mellitus, Cancer and Hypertension Social History Does patient currently use any type of tobacco product: No Have you used tobacco products in the last 12 months: No Does any household member use tobacco: No Alcohol Use: None Do you use any recreational Drugs:: No Lives With: Alone Lives Where: Home infectious screening In the last 2 months have you had wt loss of >10#?: NO Have you had fever, night sweats or hemotysis?: No Have you traveled outside the country in the last 6 months?: No Isolation: Standard ROS Review of Systems Constitutional: See HPI, Chills, Fever and Malaise ENTM: Nose Congestion Respiratoy: Productive Cough and Wheezing Cardiovascular: No Symptoms Reported Gastrointestinal/Abdominal: Nausea and Vomiting Genitourinary: No Symptoms Reported Neurological: No Symptoms Reported All Other Systems: Reviewed and Negative PE Vital Signs Vitals: Temperature 98.9 F Pulse Rate 74 Respiratory Rate 20 Blood Pressure [Left Arm] 182/86 Blood Pressure [Right Arm] 138/70 Blood Pressure 127/63 O2 Sat by Pulse Oximetry 93 General Limitations: No Limitations General Appearance: Alert, In No Apparent Distress and Anxious Eyes Eye exam: Normal Appearance and EOMI; negative Scleral Icterus ENT ENT Exam: Normal Exam Neck Neck Exam: Normal Inspection; negative Meningismus and Lymphadenopathy Chest Chest Inspection: Normal Inspection and Symmetric Chest Wall Rise Respiratory Respiratory Exam: Prolonged Expiratory Phase Respiratory Exam: Bilateral: Wheezing and Bilateral: Rhonchi, Upper: Wheezing and Upper: Rhonchi and Lower: Wheezing and Lower: Rhonchi Cardiovascular Cardiovascular Exam: Regular Rate and Normal Rhythm Abdominal Exam Abdominal Exam: Normal Inspection, Normal Bowel Sounds and Soft; negative Distention, Tenderness and Guarding Extremities Extremities Exam: Normal Inspection and Full ROM; negative Edema Neurologic Neurological Exam: Alert and Oriented X3 Psychiatric Psychiatric Exam: Normal Affect and Normal Mood Skin Skin Exam: Warm and Normal Color; negative Rash MDM Differential Diagnosis Differential Diagnosis: Asthma, Bronchitis and Pneumonia COURSE Reevaluation 1st: Improved (but only slightly) Consultation Consultation Comments: Dr. Valenzuela agrees to put her in obs ROR Labs Reviewed Laboratory Results Reviewed?: Yes Result Diagrams: 12/27/19 11:18 12/27/19 11:18 Laboratory: 12/27/19 11:45 Sputum - Expectorated Sputum - Final WBC 12.1 X10^3/uL (3.6-10.0) H 12/27/19 11:18 RBC 4.78 X10^6/uL (3.5-5.4) 12/27/19 11:18 Hgb 13.6 g/dL (12.0-16.0) 12/27/19 11:18 Hct 41.1 % (36.0-47.0) 12/27/19 11:18 MCV 86.0 fL (80.0-100.0) 12/27/19 11:18 MCH 28.6 pg (27.0-34.0) 12/27/19 11:18 MCHC 33.2 g/dL (33.0-35.0) 12/27/19 11:18 RDW 14.4 % (11.6-16.5) 12/27/19 11:18 Plt Count 206 X10^3/uL (150.0-450.0) 12/27/19 11:18 MPV 8.9 fL (7.4-11.0) 12/27/19 11:18 Neut % (Auto) 87.8 % (42.0-75.0) H 12/27/19 11:18 Lymph % (Auto) 8.0 % (21.0-51.0) L 12/27/19 11:18 [place] % (Auto) 3.7 % (0.0-13.0) 12/27/19 11:18 Eos % (Auto) 0.1 % (0.9-2.9) L 12/27/19 11:18 Baso % (Auto) 0.4 % (0.2-1.0) 12/27/19 11:18 Neut # (Auto) 10.6 x10^3/uL (2.2-4.8) H 12/27/19 11:18 Lymph # (Auto) 1.0 X10^3/uL (1.3-2.9) L 12/27/19 11:18 [place] # (Auto) 0.4 x10^3/uL (0.3-0.8) 12/27/19 11:18 Eos # (Auto) 0.0 x10^3/uL (0.0-0.2) 12/27/19 11:18 Baso # (Auto) 0.0 X10^3/uL (0.0-0.1) 12/27/19 11:18 Absolute Nucleated RBC 0.0 /100WBC 12/27/19 11:18 Sample Site Left brachial 12/27/19 12:30 ABG pH 7.470 (7.35-7.45) H 12/27/19 12:30 ABG pCO2 36.0 mmHg (35.0-45.0) 12/27/19 12:30 ABG pO2 61.0 mmHg (80.0-100.0) L 12/27/19 12:30 ABG HCO3 26.2 mmol/L (22-26) H 12/27/19 12:30 ABG O2 Saturation 93.0 % (90-100) 12/27/19 12:30 ABG Base Excess 2.6 mmol/L (-2.0-2.0) H 12/27/19 12:30 Valentino Test Na 12/27/19 12:30 A-a Gradient 44.0 mmHg 12/27/19 12:30 FiO2 21.0 12/27/19 12:30 Blood Gas Comments Sebastien well aw 12/27/19 12:30 Sodium 135 mmol/L (136-145) L 12/27/19 11:18 Corrected Sodium TNP 12/27/19 11:18 Potassium 3.8 mmol/L (3.5-5.1) 12/27/19 11:18 Chloride 100 mmol/L (98-107) 12/27/19 11:18 Carbon Dioxide 25.2 mmol/L (21-32) 12/27/19 11:18 BUN 15 mg/dL (7-18) 12/27/19 11:18 Creatinine 1.21 mg/dL (0.55-1.02) H 12/27/19 11:18 Est GFR (MDRD) Af Amer 57 (>60) L 12/27/19 11:18 Est GFR (MDRD) Non-Af 47 (>60) L 12/27/19 11:18 Glucose 93 mg/dL (65-99) 12/27/19 11:18 Calcium 8.9 mg/dL (8.5-10.1) 12/27/19 11:18 Corrected Calcium 9.9 mg/dL (8.5-10.1) 12/27/19 11:18 Magnesium 1.7 mg/dL (1.7-2.9) 12/27/19 11:18 Total Bilirubin 0.50 mg/dL (0.2-1.0) 12/27/19 11:18 AST 56 Units/L (15-37) H 12/27/19 11:18 ALT 29 Units/L (12-78) 12/27/19 11:18 Alkaline Phosphatase 59 Units/L (46-116) 12/27/19 11:18 Creatine Kinase 474 Units/L (26-192) H 12/27/19 11:18 CK-MB (CK-2) 1.7 ng/mL (0-4.0) 12/27/19 11:18 CK/CKMB % Calc 0.4 % (<4) 12/27/19 11:18 Troponin I 0.33 ng/mL (0-1.5) 12/27/19 11:18 B-Natriuretic Peptide 68.3 pg/mL (0-79) 12/27/19 11:18 Total Protein 8.2 g/dL (6.4-8.2) 12/27/19 11:18 Albumin 2.7 g/dL (3.4-5.0) L 12/27/19 11:18 Globulin 5.5 g/dL (2.5-4.5) H 12/27/19 11:18 Albumin/Globulin Ratio 0.5 Ratio (1.1-2.1) L 12/27/19 11:18 Other Results Comments: HISTORY:Shortness of breath Study: PA and lateral views of the chest Comparison:None Findings: No infiltrate, effusion, or pneumothorax identified .Cardiac and mediastinal contours are within normal limits .The soft tissues are intact . IMPRESSION: 1. No acute cardiopulmonary abnormality. Electronically signed by: JAY MORA (Dec 27, 2019 12:21:13) XRAY XRAY Interpreted by: Radiologist XRAY Findings: I disagree. Posterior infiltrate seen on lateral film EKG Rate: 71 [place]: Normal Rhythm: NSR Block: None Hypertrophy: None ST: Normal Opioid Opioid Risk Tool Total: 0 Total Score Risk Category: Low Risk Copyright: Frankie ORELLANA predicting aberrant behaviors ADDITIONAL NOTES Additional Notes Additional Notes: Pt placed in obs for acute exacerbation asthma, hypoxia, early pneumonia
[2019-12-27 11:44] LABS: BASOPHILS % (AUTO) 0.4 % (0.2-1.0); EOSINOPHILS % (AUTO) 0.1 % (0.9-2.9); HEMATOCRIT 41.1 % (36.0-47.0); HEMOGLOBIN 13.6 g/dL (12.0-16.0); MEAN CORPUSCULAR HEMOGLOBIN 28.6 pg (27.0-34.0); MEAN CORPUSCULAR HGB CONC 33.2 g/dL (33.0-35.0); MEAN PLATELET VOLUME 8.9 fL (7.4-11.0); MONOCYTES # (AUTO) 0.4 x10^3/uL (0.3-0.8); MONOCYTES % (AUTO) 3.7 % (0.0-13.0); NEUTROPHILS # (AUTO) 10.6 x10^3/uL (2.2-4.8); NEUTROPHILS % (AUTO) 87.8 % (42.0-75.0); PLATELET COUNT 206 X10^3/uL (150.0-450.0); RED BLOOD COUNT 4.78 X10^6/uL (3.5-5.4); RED CELL DISTRIBUTION WIDTH 14.4 % (11.6-16.5); WHITE BLOOD COUNT 12.1 X10^3/uL (3.6-10.0)
[2019-12-27 11:59] LABS: BLOOD UREA NITROGEN 15 mg/dL (7-18); CALCIUM 8.9 mg/dL (8.5-10.1); CARBON DIOXIDE 25.2 mmol/L (21-32); CHLORIDE 100 mmol/L (98-107); CREATININE 1.21 mg/dL (0.55-1.02); SODIUM 135 mmol/L (136-145); TROPONIN I 0.33 ng/mL (0-1.5); eGFR NON BLACK RACES 47 (>60)
[2019-12-27 12:03] LABS: ALANINE AMINOTRANSFERASE 29 Units/L (12-78); ALBUMIN 2.7 g/dL (3.4-5.0); ALKALINE PHOSPHATASE 59 Units/L (46-116); ASPARTATE AMINO TRANSFERASE 56 Units/L (15-37); CKMB % 0.4 % (<4); COR CA(FOR HYPOALB) 9.9 mg/dL (8.5-10.1); CREATINE KINASE 474 Units/L (26-192); CREATINE KINASE MB 1.7 ng/mL (0-4.0); MAGNESIUM 1.7 mg/dL (1.7-2.9); TOTAL PROTEIN 8.2 g/dL (6.4-8.2)
--- NOTE | 2019-12-27 12:22 | RAD ---
HISTORY:Shortness of breathStudy: PA and lateral views of the chestComparison:NoneFindings:No infiltrate, effusion, or pneumothorax identified .Cardiac and mediastinal contours are within normal limits .The soft tissues are intact .IMPRESSION:1. No acute cardiopulmonary abnormality.Electronically signed by: JAY MORA (Dec 27, 2019 12:21:13)
[2019-12-27] MEDS ORDERED: LEVAQUIN PREMIX IV 750 MG 750 MG/150 ML BAG IV ONE ×2 (12:28→13:35)
[2019-12-27 12:38] LABS: ABG BASE EXCESS 2.6 mmol/L (-2.0-2.0); ABG HCO3 26.2 mmol/L (22-26)
[2019-12-27] MEDS ORDERED: NS 1000 ML 1,000 ML ONE (13:32)
[2019-12-27] MEDS: NS 1000 ML 1,000 ML IV SCH ×2 (13:40→21:10)
[2019-12-27] MEDS ORDERED: LOVENOX INJ 40 MG SYR SC ONE (15:25)
[2019-12-27] MEDS ORDERED: SOLU-Medrol 125 MG VIAL ONE (15:25)
[2019-12-27] MEDS: LOVENOX INJ 40 MG SYR SC SCH (15:35)
[2019-12-27] MEDS: SOLU-Medrol 125 MG VIAL IVP SCH ×2 (15:36→21:11)
[2019-12-27] MEDS: DUONEB 0.5 MG/3 MG (3 mL) NEB SCH ×2 (17:09→20:50)
[2019-12-27] MEDS: PEPCID TAB 20 MG PO SCH (21:09)
[2019-12-27] MEDS: NEURONTIN CAP 300 MG PO SCH (21:10)
[2019-12-27] MEDS: TAMIFLU PO SCH (21:10)
[2019-12-28] MEDS: DUONEB 0.5 MG/3 MG (3 mL) NEB SCH ×7 (00:44→20:15)
[2019-12-28] MEDS: NS 1000 ML 1,000 ML IV SCH ×5 (00:50→21:46)
[2019-12-28 05:53] LABS: BASOPHILS % (AUTO) 0.2 % (0.2-1.0); HEMATOCRIT 37.1 % (36.0-47.0); HEMOGLOBIN 12.3 g/dL (12.0-16.0); LYMPHOCYTES # (AUTO) 0.4 X10^3/uL (1.3-2.9); MEAN CORPUSCULAR HEMOGLOBIN 28.8 pg (27.0-34.0); MEAN CORPUSCULAR HGB CONC 33.3 g/dL (33.0-35.0); MEAN CORPUSCULAR VOLUME 86.5 fL (80.0-100.0); MEAN PLATELET VOLUME 9.2 fL (7.4-11.0); MONOCYTES # (AUTO) 0.2 x10^3/uL (0.3-0.8); MONOCYTES % (AUTO) 2.3 % (0.0-13.0); NEUTROPHILS # (AUTO) 10.2 x10^3/uL (2.2-4.8); NEUTROPHILS % (AUTO) 93.5 % (42.0-75.0); PLATELET COUNT 190 X10^3/uL (150.0-450.0); RED BLOOD COUNT 4.29 X10^6/uL (3.5-5.4); RED CELL DISTRIBUTION WIDTH 14.8 % (11.6-16.5); WHITE BLOOD COUNT 10.9 X10^3/uL (3.6-10.0)
[2019-12-28] MEDS: SOLU-Medrol 125 MG VIAL IVP SCH ×3 (05:57→22:03)
[2019-12-28 05:58] LABS: BLOOD UREA NITROGEN 16 mg/dL (7-18); CALCIUM 8.3 mg/dL (8.5-10.1); CARBON DIOXIDE 24.1 mmol/L (21-32); CHLORIDE 104 mmol/L (98-107); COR NA(FOR HYPERGLY) 142 mmol/L (136-145); CREATININE 1.11 mg/dL (0.55-1.02); SODIUM 139 mmol/L (136-145); eGFR NON BLACK RACES 52 (>60)
[2019-12-28 06:13] LABS: BAND NEUTROPHILS % 3 % (0-10)
[2019-12-28 06:14] LABS: PLATELET MORPHOLOGY COMMENT NORMAL (NORMAL)
[2019-12-28] MEDS ORDERED: POTASSIUM CHL 60 MEQ/NS 0.45% 500 ML IV PRN (06:36)
[2019-12-28] MEDS ORDERED: KLOR-CON PO PRN (06:36)
[2019-12-28] MEDS ORDERED: MICRO K EXTEN CAP 10 MEQ PO PRN (06:36)
[2019-12-28] MEDS ORDERED: K-RIDER 10 MEQ/NS 100 ML 10 MEQ/100 ML BAG IV PRN (06:36)
[2019-12-28] MEDS ORDERED: K-DUR TAB 20 MEQ PO PRN (06:36)
[2019-12-28] MEDS ORDERED: POTASSIUM CHL 40 MEQ/NS 0.45% 500 ML IV PRN (06:36)
[2019-12-28] MEDS ORDERED: POTASSIUM CHLORIDE LIQ 20 MEQ UDC PO PRN (06:36)
[2019-12-28] MEDS: LEVAQUIN PREMIX IV 750 MG 750 MG/150 ML BAG IV SCH (09:43)
[2019-12-28] MEDS: LOVENOX INJ 40 MG SYR SC SCH (09:44)
[2019-12-28] MEDS: FOLIC ACID TAB 1 MG PO SCH (09:44)
[2019-12-28] MEDS: PEPCID TAB 20 MG PO SCH ×2 (09:45→21:45)
[2019-12-28] MEDS: PROCARDIA XL PO SCH (09:45)
[2019-12-28] MEDS: ALDACTONE TAB 25 MG PO SCH ×2 (09:45→22:05)
[2019-12-28] MEDS: SINGULAIR TAB 10 MG PO SCH (09:45)
[2019-12-28] MEDS: APRESOLINE TAB 25 MG PO SCH ×2 (09:45→22:04)
[2019-12-28] MEDS: TAMIFLU PO SCH ×2 (09:45→22:04)
[2019-12-28] MEDS: TOPROL XL PO SCH (09:45)
[2019-12-28] MEDS: XALATAN EACHEYE SCH (09:49)
--- NOTE | 2019-12-28 10:31 | DR.H&P ---
H&P History & Physical for Day of: H&P Date: 12/28/19 Chief Complaint Chief Complaint: SOB, cough Allergies Allergies Allergy/AdvReac Type Severity Reaction Status Date / Time No Known Drug Allergies Allergy Verified 02/19/18 13:40 History of Present Illness History of Present Illness: Ms. Rincon is a 69y/o female who presented with productive cough, wheezing and SOB. Patient has been exposed to multiple family members with flu including daughter and grand-daughter. She reports increased SOB and productive cough with green sputum. She reports hx of asthma. ED work up included CXR which was negative for infection. She was hypoxic on admission requiring 2 L nasal canula, ABG showed 7.47/36/61/26. She was admitted for Asthma exacerbation with bronchitis and started on solumedrol and levaquin. Patient's flu test was positive so Tamiflu was started. Past Medical History Past Medical History: Arthritis, Asthma and Hypertension Past Surgical History Surgical History: No History Family History Family Medical History: Diabetes Mellitus, Cancer and Hypertension Social History Does patient currently use any type of tobacco product: No Have you used tobacco products in the last 12 months: No Does any household member use tobacco: No Alcohol Use: None Drug Use: None Prescription drug monitoring program results: PDMP was not reviewed Medications Home Medications: No Known Drug Allergies Allergy (Verified 02/19/18 13:40) CONTINUE taking the following medications albuterol sulfate [ProAir HFA] 2 puff INHALATION Q4-6H PRN 12/27/19 [History] celecoxib 200 mg PO DAILY 12/27/19 [History] folic acid 1 mg PO DAILY 12/27/19 [History] hydralazine 25 mg PO BID 12/27/19 [History] hydrochlorothiazide 12.5 mg PO DAILY 12/27/19 [History] methotrexate sodium 12.5 mg PO WEEKLY 12/27/19 [History] metoprolol succinate 25 mg PO DAILY 12/27/19 [History] montelukast 10 mg PO DAILY 12/27/19 [History] Labs Result Diagrams: 12/28/19 04:25 12/28/19 04:25 Labs: 12/27/19 11:45 Sputum - Expectorated Sputum - Final Laboratory WBC 10.9 X10^3/uL (3.6-10.0) H 12/28/19 04:25 RBC 4.29 X10^6/uL (3.5-5.4) 12/28/19 04:25 Hgb 12.3 g/dL (12.0-16.0) 12/28/19 04:25 Hct 37.1 % (36.0-47.0) 12/28/19 04:25 MCV 86.5 fL (80.0-100.0) 12/28/19 04:25 MCH 28.8 pg (27.0-34.0) 12/28/19 04:25 MCHC 33.3 g/dL (33.0-35.0) 12/28/19 04:25 RDW 14.8 % (11.6-16.5) 12/28/19 04:25 Plt Count 190 X10^3/uL (150.0-450.0) 12/28/19 04:25 Plt Count Comment Adequate (ADEQUATE) 12/28/19 04:25 MPV 9.2 fL (7.4-11.0) 12/28/19 04:25 Neut % (Auto) 93.5 % (42.0-75.0) H 12/28/19 04:25 Lymph % (Auto) 4.0 % (21.0-51.0) L 12/28/19 04:25 [place] % (Auto) 2.3 % (0.0-13.0) 12/28/19 04:25 Eos % (Auto) 0.0 % (0.9-2.9) L 12/28/19 04:25 Baso % (Auto) 0.2 % (0.2-1.0) 12/28/19 04:25 Neut # (Auto) 10.2 x10^3/uL (2.2-4.8) H 12/28/19 04:25 Lymph # (Auto) 0.4 X10^3/uL (1.3-2.9) L 12/28/19 04:25 [place] # (Auto) 0.2 x10^3/uL (0.3-0.8) L 12/28/19 04:25 Eos # (Auto) 0.0 x10^3/uL (0.0-0.2) 12/28/19 04:25 Baso # (Auto) 0.0 X10^3/uL (0.0-0.1) 12/28/19 04:25 Absolute Nucleated RBC 0.0 /100WBC 12/28/19 04:25 Total Counted 100 12/28/19 04:25 Neutrophils % (Manual) 85 % (39-76) H 12/28/19 04:25 Band Neutrophils % 3 % (0-10) 12/28/19 04:25 Lymphocytes % (Manual) 9 % (13-43) L 12/28/19 04:25 Monocytes % (Manual) 3 % (4-9) L 12/28/19 04:25 Plt Morphology Comment Normal (NORMAL) 12/28/19 04:25 RBC Morphology Normal (NORMAL) 12/28/19 04:25 Sample Site Left brachial 12/27/19 12:30 ABG pH 7.470 (7.35-7.45) H 12/27/19 12:30 ABG pCO2 36.0 mmHg (35.0-45.0) 12/27/19 12:30 ABG pO2 61.0 mmHg (80.0-100.0) L 12/27/19 12:30 ABG HCO3 26.2 mmol/L (22-26) H 12/27/19 12:30 ABG O2 Saturation 93.0 % (90-100) 12/27/19 12:30 ABG Base Excess 2.6 mmol/L (-2.0-2.0) H 12/27/19 12:30 Valentino Test Na 12/27/19 12:30 A-a Gradient 44.0 mmHg 12/27/19 12:30 FiO2 21.0 12/27/19 12:30 Blood Gas Comments Sebastien well aw 12/27/19 12:30 Sodium 139 mmol/L (136-145) 12/28/19 04:25 Corrected Sodium 142 mmol/L (136-145) 12/28/19 04:25 Potassium 3.2 mmol/L (3.5-5.1) L 12/28/19 04:25 Chloride 104 mmol/L (98-107) 12/28/19 04:25 Carbon Dioxide 24.1 mmol/L (21-32) 12/28/19 04:25 BUN 16 mg/dL (7-18) 12/28/19 04:25 Creatinine 1.11 mg/dL (0.55-1.02) H 12/28/19 04:25 Est GFR (MDRD) Af Amer > 60 (>60) 12/28/19 04:25 Est GFR (MDRD) Non-Af 52 (>60) L 12/28/19 04:25 Glucose 226 mg/dL (65-99) H 12/28/19 04:25 Calcium 8.3 mg/dL (8.5-10.1) L 12/28/19 04:25 Corrected Calcium 9.9 mg/dL (8.5-10.1) 12/27/19 11:18 Magnesium 1.8 mg/dL (1.7-2.9) 12/28/19 04:25 Total Bilirubin 0.50 mg/dL (0.2-1.0) 12/27/19 11:18 AST 56 Units/L (15-37) H 12/27/19 11:18 ALT 29 Units/L (12-78) 12/27/19 11:18 Alkaline Phosphatase 59 Units/L (46-116) 12/27/19 11:18 Creatine Kinase 474 Units/L (26-192) H 12/27/19 11:18 CK-MB (CK-2) 1.7 ng/mL (0-4.0) 12/27/19 11:18 CK/CKMB % Calc 0.4 % (<4) 12/27/19 11:18 Troponin I 0.33 ng/mL (0-1.5) 12/27/19 11:18 B-Natriuretic Peptide 68.3 pg/mL (0-79) 12/27/19 11:18 Total Protein 8.2 g/dL (6.4-8.2) 12/27/19 11:18 Albumin 2.7 g/dL (3.4-5.0) L 12/27/19 11:18 Globulin 5.5 g/dL (2.5-4.5) H 12/27/19 11:18 Albumin/Globulin Ratio 0.5 Ratio (1.1-2.1) L 12/27/19 11:18 Influenza Type A (PCR) Positive (NEGATIVE) A 12/27/19 16:32 Influenza Type B (PCR) Negative (NEGATIVE) 12/27/19 16:32 Review of Systems Constitutional: Fever, Chills, Weakness and Malaise Eyes: No Symptoms Reported ENT: Nose Discharge and Nose Congestion Respiratory: Cough, Shortness of Breath, SOB with Excertion, Sputum and Wheezing Cardiovascular: denies No Symptoms Reported Gastrointestinal: Nausea and Diarrhea Genitourinary: No Symptoms Reported Musculoskeletal: No Symptoms Reported Skin: No Symptoms Reported Neurological: No Symptoms Reported Physical Exam Vital Signs: Temperature 97.8 F Pulse Rate [Left Brachial] 68 Pulse Rate 74 Respiratory Rate 22 Blood Pressure [Left Arm] 184/79 Blood Pressure [Right Arm] 138/70 Blood Pressure 127/63 O2 Sat by Pulse Oximetry 96 Oriented: Normal Eyes: Normal Nose: Normal Respiratory: Rhonchi Throughout and Wheezes Throughout Cardiovascular: Normal; negative Edema Auscultation: Bowel Sounds: Normal Palpation: Normal Tenderness: Normal Skin: Normal Musculoskeletal: Normal Psychiatric: Normal Mood Description: Calm Affect: Normal Assessment/Plan (1) Acute respiratory failure with hypoxia: Status: Acute Plan: Acute hypoxia due to underlying asthma and influenza Currently on 2L NC, titrate as tolerated to keep sats > 92% Repeat CXR today (2) Influenza A: Status: Acute Plan: Continue Tamiflu 75 mg BID x 5 days Continue hydration with IVF (3) Asthma exacerbation: Qualifiers: Asthma persistence: unspecified Asthma severity: unspecified severity Qualified Code(s): J45.901 - Unspecified asthma with (acute) exacerbation Status: Acute Plan: Continue solumedrol, levaquin and duonebs Will add pulmicort BID Follow up sputum culture (4) Diarrhea: Qualifiers: Diarrhea type: unspecified type Qualified Code(s): R19.7 - Diarrhea, unspecified Status: Acute Plan: Reports x 5 episodes since admission, was not having diarrhea at home. Could be related to antibiotics or flu. Will check stool studies, continue IVF (5) Dehydration: Status: Acute Plan: Continue gentle hydration (6) Diabetes: Qualifiers: Diabetes mellitus complication status: without complication Diabetes mellitus penitentiary insulin use: without penitentiary use Diabetes mellitus type: type 2 Qualified Code(s): E11.9 - Type 2 diabetes mellitus without com plications Status: Acute Plan: on glipizide, will start SSI while inpatient (7) Hypertension: Qualifiers: Hypertension type: essential hypertension Qualified Code(s): I10 - Essential (primary) hypertension Status: Acute Plan: resume home medications except HCTZ Review H&P Reviewed: Yes Patient was examined?: Yes
--- NOTE | 2019-12-28 10:41 | RAD ---
HISTORYAsthma rule out pneumoniaSTUDYPortable AP [id number] normal heart size again noted with essentially clear lungs. There is no evidence for developing pneumonia, pulmonary edema or large pleural effusion.IMPRESSIONNo active chest disease demonstrated.Electronically signed by: SHIRA LAIRD (Dec 28, 2019 10:39:52)
[2019-12-28] MEDS ORDERED: PULMICORT NEB TX 0.5 MG NEB SCH (10:45)
[2019-12-28] MEDS: PLAQUENIL PO SCH ×2 (11:31→22:04)
[2019-12-28] MEDS: CELEBREX PO SCH (11:32)
[2019-12-28] MEDS: MAGNESIUM SULFATE 1 GRAM/100 mL PREMIX 1 GM/100 ML BAG IV PRN ×2 (11:32→14:01)
[2019-12-28] MEDS: HumuLIN R SC PRN ×3 (11:45→21:45)
[2019-12-28] MEDS: PULMICORT NEB TX 0.5 MG NEB SCH ×2 (11:58→20:15)
[2019-12-28] MEDS: LOVASTATIN 40 MG PO SCH (13:57)
[2019-12-28] MEDS: NEURONTIN CAP 300 MG PO SCH (21:45)
[2019-12-29] MEDS: DUONEB 0.5 MG/3 MG (3 mL) NEB SCH ×8 (01:00→21:02)
[2019-12-29] MEDS: NS 1000 ML 1,000 ML IV SCH (05:04)
[2019-12-29 06:05] LABS: BASOPHILS # (AUTO) 0.1 X10^3/uL (0.0-0.1); BASOPHILS % (AUTO) 0.4 % (0.2-1.0); HEMATOCRIT 38.1 % (36.0-47.0); HEMOGLOBIN 12.5 g/dL (12.0-16.0); LYMPHOCYTES # (AUTO) 0.5 X10^3/uL (1.3-2.9); LYMPHOCYTES % (AUTO) 2.8 % (21.0-51.0); MEAN CORPUSCULAR HEMOGLOBIN 28.2 pg (27.0-34.0); MEAN CORPUSCULAR HGB CONC 32.7 g/dL (33.0-35.0); MEAN CORPUSCULAR VOLUME 86.4 fL (80.0-100.0); MEAN PLATELET VOLUME 9.2 fL (7.4-11.0); MONOCYTES # (AUTO) 0.5 x10^3/uL (0.3-0.8); MONOCYTES % (AUTO) 2.8 % (0.0-13.0); NEUTROPHILS # (AUTO) 15.7 x10^3/uL (2.2-4.8); PLATELET COUNT 220 X10^3/uL (150.0-450.0); RED BLOOD COUNT 4.41 X10^6/uL (3.5-5.4); WHITE BLOOD COUNT 16.7 X10^3/uL (3.6-10.0)
[2019-12-29] MEDS: SOLU-Medrol 125 MG VIAL IVP SCH ×3 (06:15→21:31)
[2019-12-29] MEDS: HumuLIN R SC PRN ×2 (06:15→21:40)
[2019-12-29 06:18] LABS: BLOOD UREA NITROGEN 16 mg/dL (7-18); CALCIUM 8.3 mg/dL (8.5-10.1); CARBON DIOXIDE 23.5 mmol/L (21-32); CHLORIDE 108 mmol/L (98-107); COR NA(FOR HYPERGLY) 143 mmol/L (136-145); CREATININE 1.03 mg/dL (0.55-1.02); MAGNESIUM 2.3 mg/dL (1.7-2.9); SODIUM 140 mmol/L (136-145); eGFR NON BLACK RACES 56 (>60)
[2019-12-29 06:33] LABS: BAND NEUTROPHILS % 6 % (0-10)
[2019-12-29 06:34] LABS: PLATELET MORPHOLOGY COMMENT NORMAL (NORMAL)
[2019-12-29] MEDS: SINGULAIR TAB 10 MG PO SCH (08:37)
[2019-12-29] MEDS: APRESOLINE TAB 25 MG PO SCH ×2 (08:37→21:31)
[2019-12-29] MEDS: PROCARDIA XL PO SCH (08:37)
[2019-12-29] MEDS: FOLIC ACID TAB 1 MG PO SCH (08:37)
[2019-12-29] MEDS: PEPCID TAB 20 MG PO SCH ×2 (08:37→21:31)
[2019-12-29] MEDS: TAMIFLU PO SCH ×2 (08:38→21:31)
[2019-12-29] MEDS: ALDACTONE TAB 25 MG PO SCH ×2 (08:38→21:31)
[2019-12-29] MEDS: PLAQUENIL PO SCH ×2 (08:38→21:31)
[2019-12-29] MEDS: CELEBREX PO SCH (08:38)
[2019-12-29] MEDS: TOPROL XL PO SCH (08:38)
[2019-12-29] MEDS: LEVAQUIN PREMIX IV 750 MG 750 MG/150 ML BAG IV SCH (08:38)
[2019-12-29] MEDS: LOVENOX INJ 40 MG SYR SC SCH (08:39)
[2019-12-29] MEDS: LOVASTATIN 40 MG PO SCH (08:39)
[2019-12-29] MEDS: XALATAN EACHEYE SCH (08:39)
[2019-12-29] MEDS: PULMICORT NEB TX 0.5 MG NEB SCH ×2 (08:46→21:02)
--- NOTE | 2019-12-29 13:48 | PCM.PROG ---
Progress Note Progress Note for Day of Date of Exam: 12/29/19 Subjective Subjective: Patient seen at bedside, reports improvement in breathing. She is currently on 2L. She still feels congested. She reports diarrhea has slowed down a little. She has been eating and drinking ok. Past Medical Family Social History Past Med/Fam/Surg Hx: No changes since H&P Allergies: Allergies No Known Drug Allergies Allergy (Verified 02/19/18 13:40) Review of Systems ROS: No change since H&P Vital Signs and I&O's Vital Signs: Temperature 98.5 F Pulse Rate [Left Brachial] 64 Pulse Rate 68 Respiratory Rate 22 Blood Pressure [Left Arm] 139/67 Blood Pressure [Right Arm] 138/70 Blood Pressure 127/63 O2 Sat by Pulse Oximetry 97 Intake and Output: Intake & Output 12/26/19 12/27/19 12/28/19 12/29/19 23:59 23:59 23:59 23:59 Intake Total 830 / 830 2783 / 2783 858 / 858 Balance 830 / 830 2783 / 2783 858 / 858 Physical Exam Oriented: Normal Eyes: Normal Nose: Normal Respiratory: Wheezes and Rales Cardiovascular: Normal; negative Edema Auscultation: Bowel Sounds: Normal Tenderness: Normal Skin: Normal Musculoskeletal: Normal Psychiatric: Normal Mood Description: Calm Affect: Normal Speech Pattern: Clear and Appropriate Laboratory and Diagnostics Result Diagrams: 12/29/19 05:42 12/29/19 05:42 Labs: 12/27/19 11:45 Sputum - Expectorated Sputum Sputum Culture - Final 12/27/19 11:45 Sputum - Expectorated Sputum - Final 12/28/19 13:30 Stool Stool Culture - Preliminary 12/28/19 13:30 Stool - Final Laboratory WBC 16.7 X10^3/uL (3.6-10.0) H 12/29/19 05:42 RBC 4.41 X10^6/uL (3.5-5.4) 12/29/19 05:42 Hgb 12.5 g/dL (12.0-16.0) 12/29/19 05:42 Hct 38.1 % (36.0-47.0) 12/29/19 05:42 MCV 86.4 fL (80.0-100.0) 12/29/19 05:42 MCH 28.2 pg (27.0-34.0) 12/29/19 05:42 MCHC 32.7 g/dL (33.0-35.0) L 12/29/19 05:42 RDW 15.0 % (11.6-16.5) 12/29/19 05:42 Plt Count 220 X10^3/uL (150.0-450.0) 12/29/19 05:42 Plt Count Comment Adequate (ADEQUATE) 12/29/19 05:42 MPV 9.2 fL (7.4-11.0) 12/29/19 05:42 Neut % (Auto) 94.0 % (42.0-75.0) H 12/29/19 05:42 Lymph % (Auto) 2.8 % (21.0-51.0) L 12/29/19 05:42 [place] % (Auto) 2.8 % (0.0-13.0) 12/29/19 05:42 Eos % (Auto) 0.0 % (0.9-2.9) L 12/29/19 05:42 Baso % (Auto) 0.4 % (0.2-1.0) 12/29/19 05:42 Neut # (Auto) 15.7 x10^3/uL (2.2-4.8) H 12/29/19 05:42 Lymph # (Auto) 0.5 X10^3/uL (1.3-2.9) L 12/29/19 05:42 [place] # (Auto) 0.5 x10^3/uL (0.3-0.8) 12/29/19 05:42 Eos # (Auto) 0.0 x10^3/uL (0.0-0.2) 12/29/19 05:42 Baso # (Auto) 0.1 X10^3/uL (0.0-0.1) 12/29/19 05:42 Absolute Nucleated RBC 0.0 /100WBC 12/29/19 05:42 Total Counted 100 12/29/19 05:42 Neutrophils % (Manual) 88 % (39-76) H 12/29/19 05:42 Band Neutrophils % 6 % (0-10) 12/29/19 05:42 Lymphocytes % (Manual) 2 % (13-43) L 12/29/19 05:42 Monocytes % (Manual) 3 % (4-9) L 12/29/19 05:42 Eosinophils % (Manual) 1 % (0-6) 12/29/19 05:42 Plt Morphology Comment Normal (NORMAL) 12/29/19 05:42 RBC Morphology Normal (NORMAL) 12/29/19 05:42 Sample Site Left brachial 12/27/19 12:30 ABG pH 7.470 (7.35-7.45) H 12/27/19 12:30 ABG pCO2 36.0 mmHg (35.0-45.0) 12/27/19 12:30 ABG pO2 61.0 mmHg (80.0-100.0) L 12/27/19 12:30 ABG HCO3 26.2 mmol/L (22-26) H 12/27/19 12:30 ABG O2 Saturation 93.0 % (90-100) 12/27/19 12:30 ABG Base Excess 2.6 mmol/L (-2.0-2.0) H 12/27/19 12:30 Valentino Test Na 12/27/19 12:30 A-a Gradient 44.0 mmHg 12/27/19 12:30 FiO2 21.0 12/27/19 12:30 Blood Gas Comments Sebastien well aw 12/27/19 12:30 Sodium 140 mmol/L (136-145) 12/29/19 05:42 Corrected Sodium 143 mmol/L (136-145) 12/29/19 05:42 Potassium 3.9 mmol/L (3.5-5.1) 12/29/19 05:42 Chloride 108 mmol/L (98-107) H 12/29/19 05:42 Carbon Dioxide 23.5 mmol/L (21-32) 12/29/19 05:42 BUN 16 mg/dL (7-18) 12/29/19 05:42 Creatinine 1.03 mg/dL (0.55-1.02) H 12/29/19 05:42 Est GFR (MDRD) Af Amer > 60 (>60) 12/29/19 05:42 Est GFR (MDRD) Non-Af 56 (>60) L 12/29/19 05:42 Glucose 223 mg/dL (65-99) H 12/29/19 05:42 POC Glucose (mg/dL) 185 mg/dL (65-99) H 12/29/19 12:04 Calcium 8.3 mg/dL (8.5-10.1) L 12/29/19 05:42 Corrected Calcium 9.9 mg/dL (8.5-10.1) 12/27/19 11:18 Magnesium 2.3 mg/dL (1.7-2.9) 12/29/19 05:42 Total Bilirubin 0.50 mg/dL (0.2-1.0) 12/27/19 11:18 AST 56 Units/L (15-37) H 12/27/19 11:18 ALT 29 Units/L (12-78) 12/27/19 11:18 Alkaline Phosphatase 59 Units/L (46-116) 12/27/19 11:18 Creatine Kinase 474 Units/L (26-192) H 12/27/19 11:18 CK-MB (CK-2) 1.7 ng/mL (0-4.0) 12/27/19 11:18 CK/CKMB % Calc 0.4 % (<4) 12/27/19 11:18 Troponin I 0.33 ng/mL (0-1.5) 12/27/19 11:18 B-Natriuretic Peptide 68.3 pg/mL (0-79) 12/27/19 11:18 Total Protein 8.2 g/dL (6.4-8.2) 12/27/19 11:18 Albumin 2.7 g/dL (3.4-5.0) L 12/27/19 11:18 Globulin 5.5 g/dL (2.5-4.5) H 12/27/19 11:18 Albumin/Globulin Ratio 0.5 Ratio (1.1-2.1) L 12/27/19 11:18 Stool for White Cells Positive (NEGATIVE) A 12/28/19 13:30 Stl C. diff Tox B Gene Negative (NEGATIVE) 12/28/19 13:30 Stl C. diff [id number] Negative (NEGATIVE) 12/28/19 13:30 Influenza Type A (PCR) Positive (NEGATIVE) A 12/27/19 16:32 Influenza Type B (PCR) Negative (NEGATIVE) 12/27/19 16:32 Plan (1) Acute respiratory failure with hypoxia: Status: Acute Plan: Acute hypoxia due to underlying asthma and influenza Currently on 2L NC, titrate as tolerated to keep sats > 92% CXR yesterday negative for pneumonia or effusions Continue IV abx, duonebs Will stop IVF due to crackles on exam (2) Influenza A: Status: Acute Plan: Continue Tamiflu 75 mg BID x 5 days (3) Asthma exacerbation: Status: Acute Qualifiers: Asthma persistence: unspecified Asthma severity: unspecified severity Qualified Code(s): J45.901 - Unspecified asthma with (acute) exacerbation Plan: Continue solumedrol, levaquin and duonebs continue pulmicort BID sputum culture: normal [place] (4) Diarrhea: Status: Acute Qualifiers: Diarrhea type: unspecified type Qualified Code(s): R19.7 - Diarrhea, unspecified Plan: Slightly better, C diff (-) [place] (-) Stool positive for WBC Will add probiotics (5) Dehydration: Status: Acute Plan: Resolved (6) Diabetes: Status: Acute Qualifiers: Diabetes mellitus complication status: without complication Diabetes mellitus termite control technician insulin use: without fci use Diabetes mellitus type: type 2 Qualified Code(s): E11.9 - Type 2 diabetes mellitus without complications Plan: on glipizide, will start SSI while inpatient (7) Hypertension: Status: Acute Qualifiers: Hypertension type: essential hypertension Qualified Code(s): I10 - Essential (primary) hypertension Plan: resume home medications except HCTZ
[2019-12-29] MEDS: LACTINEX GRANULES PO SCH ×2 (14:08→21:39)
[2019-12-29] MEDS: NEURONTIN CAP 300 MG PO SCH (21:30)
[2019-12-30] MEDS: DUONEB 0.5 MG/3 MG (3 mL) NEB SCH ×6 (00:28→20:45)
[2019-12-30] MEDS: SOLU-Medrol 125 MG VIAL IVP SCH ×4 (06:00→21:28)
[2019-12-30] MEDS: LACTINEX GRANULES PO SCH (06:00)
[2019-12-30 06:20] LABS: BASOPHILS % (AUTO) 0.2 % (0.2-1.0); BLOOD UREA NITROGEN 17 mg/dL (7-18); CALCIUM 8.4 mg/dL (8.5-10.1); CARBON DIOXIDE 24.9 mmol/L (21-32); CHLORIDE 109 mmol/L (98-107); COR NA(FOR HYPERGLY) 144 mmol/L (136-145); CREATININE 0.92 mg/dL (0.55-1.02); EOSINOPHILS % (AUTO) 0.2 % (0.9-2.9); HEMATOCRIT 37.6 % (36.0-47.0); HEMOGLOBIN 12.2 g/dL (12.0-16.0); LYMPHOCYTES # (AUTO) 0.7 X10^3/uL (1.3-2.9); LYMPHOCYTES % (AUTO) 3.6 % (21.0-51.0); MEAN CORPUSCULAR HGB CONC 32.4 g/dL (33.0-35.0); MEAN CORPUSCULAR VOLUME 86.3 fL (80.0-100.0); MEAN PLATELET VOLUME 9.3 fL (7.4-11.0); MONOCYTES % (AUTO) 5.8 % (0.0-13.0); NEUTROPHILS # (AUTO) 16.2 x10^3/uL (2.2-4.8); NEUTROPHILS % (AUTO) 90.2 % (42.0-75.0); PLATELET COUNT 206 X10^3/uL (150.0-450.0); RED BLOOD COUNT 4.36 X10^6/uL (3.5-5.4); RED CELL DISTRIBUTION WIDTH 15.1 % (11.6-16.5); SODIUM 142 mmol/L (136-145); eGFR NON BLACK RACES > 60 (>60)
[2019-12-30 07:16] LABS: PLATELET MORPHOLOGY COMMENT NORMAL (NORMAL)
[2019-12-30] MEDS: FOLIC ACID TAB 1 MG PO SCH (08:47)
[2019-12-30] MEDS: SINGULAIR TAB 10 MG PO SCH (08:47)
[2019-12-30] MEDS: TOPROL XL PO SCH (08:47)
[2019-12-30] MEDS: PEPCID TAB 20 MG PO SCH ×2 (08:47→20:41)
[2019-12-30] MEDS: ALDACTONE TAB 25 MG PO SCH ×2 (08:47→20:41)
[2019-12-30] MEDS: PROCARDIA XL PO SCH (08:47)
[2019-12-30] MEDS: APRESOLINE TAB 25 MG PO SCH ×2 (08:47→20:42)
[2019-12-30] MEDS: LOVENOX INJ 40 MG SYR SC SCH (08:48)
[2019-12-30] MEDS: LEVAQUIN PREMIX IV 750 MG 750 MG/150 ML BAG IV SCH (08:48)
[2019-12-30] MEDS: LOVASTATIN 40 MG PO SCH (08:48)
[2019-12-30] MEDS: TAMIFLU PO SCH ×2 (08:48→20:41)
[2019-12-30] MEDS: PLAQUENIL PO SCH ×2 (08:48→20:41)
[2019-12-30] MEDS: CELEBREX PO SCH (08:49)
[2019-12-30] MEDS: XALATAN EACHEYE SCH (08:49)
[2019-12-30] MEDS: PULMICORT NEB TX 0.5 MG NEB SCH ×2 (09:06→20:45)
--- NOTE | 2019-12-30 10:30 | PCM.PROG ---
Progress Note Progress Note for Day of Date of Exam: 12/30/19 Subjective Subjective: Patient seen at bedside, reports improvement in breathing. She reports diarrhea has slowed down some but still going 3-4 times loose watery stool. She denies N/V, has been eating ok. Denies fever or chills. Past Medical Family Social History Past Med/Fam/Surg Hx: No changes since H&P Allergies: Allergies No Known Drug Allergies Allergy (Verified 02/19/18 13:40) Review of Systems ROS: No change since H&P Vital Signs and I&O's Vital Signs: Temperature 98.2 F Pulse Rate [Left Brachial] 64 Pulse Rate 63 Respiratory Rate 22 Blood Pressure [Left Arm] 148/65 Blood Pressure [Right Arm] 138/70 Blood Pressure 127/63 O2 Sat by Pulse Oximetry 98 Intake and Output: Intake & Output 12/27/19 12/28/19 12/29/19 12/30/19 23:59 23:59 23:59 23:59 Intake Total 830 / 830 2783 / 2783 2598 / 2598 240 / 240 Balance 830 / 830 2783 / 2783 2598 / 2598 240 / 240 Physical Exam Oriented: Normal Eyes: Normal Nose: Normal Respiratory: Wheezes and Rhonchi Cardiovascular: Normal; negative Edema Auscultation: Bowel Sounds: Normal Tenderness: Diffuse and Mild Skin: Normal Musculoskeletal: Normal Psychiatric: Normal Mood Description: Calm Affect: Normal Speech Pattern: Clear and Appropriate Laboratory and Diagnostics Result Diagrams: 12/30/19 05:22 12/30/19 05:22 Labs: 12/28/19 13:30 Stool Stool Culture - Final 12/28/19 13:30 Stool - Final 12/27/19 11:45 Sputum - Expectorated Sputum Sputum Culture - Final 12/27/19 11:45 Sputum - Expectorated Sputum - Final Laboratory WBC 18.0 X10^3/uL (3.6-10.0) H 12/30/19 05:22 RBC 4.36 X10^6/uL (3.5-5.4) 12/30/19 05:22 Hgb 12.2 g/dL (12.0-16.0) 12/30/19 05:22 Hct 37.6 % (36.0-47.0) 12/30/19 05:22 MCV 86.3 fL (80.0-100.0) 12/30/19 05:22 MCH 28.0 pg (27.0-34.0) 12/30/19 05:22 MCHC 32.4 g/dL (33.0-35.0) L 12/30/19 05:22 RDW 15.1 % (11.6-16.5) 12/30/19 05:22 Plt Count 206 X10^3/uL (150.0-450.0) 12/30/19 05:22 Plt Count Comment Adequate (ADEQUATE) 12/30/19 05:22 MPV 9.3 fL (7.4-11.0) 12/30/19 05:22 Neut % (Auto) 90.2 % (42.0-75.0) H 12/30/19 05:22 Lymph % (Auto) 3.6 % (21.0-51.0) L 12/30/19 05:22 Rowan % (Auto) 5.8 % (0.0-13.0) 12/30/19 05:22 Eos % (Auto) 0.2 % (0.9-2.9) L 12/30/19 05:22 Baso % (Auto) 0.2 % (0.2-1.0) 12/30/19 05:22 Neut # (Auto) 16.2 x10^3/uL (2.2-4.8) H 12/30/19 05:22 Lymph # (Auto) 0.7 X10^3/uL (1.3-2.9) L 12/30/19 05:22 Rowan # (Auto) 1.0 x10^3/uL (0.3-0.8) H 12/30/19 05:22 Eos # (Auto) 0.0 x10^3/uL (0.0-0.2) 12/30/19 05:22 Baso # (Auto) 0.0 X10^3/uL (0.0-0.1) 12/30/19 05:22 Absolute Nucleated RBC 0.1 /100WBC 12/30/19 05:22 Total Counted 100 12/30/19 05:22 Neutrophils % (Manual) 90 % (39-76) H 12/30/19 05:22 Band Neutrophils % 6 % (0-10) 12/29/19 05:42 Lymphocytes % (Manual) 6 % (13-43) L 12/30/19 05:22 Monocytes % (Manual) 2 % (4-9) L 12/30/19 05:22 Eosinophils % (Manual) 2 % (0-6) 12/30/19 05:22 Plt Morphology Comment Normal (NORMAL) 12/30/19 05:22 RBC Morphology Normal (NORMAL) 12/30/19 05:22 Sample Site Left brachial 12/27/19 12:30 ABG pH 7.470 (7.35-7.45) H 12/27/19 12:30 ABG pCO2 36.0 mmHg (35.0-45.0) 12/27/19 12:30 ABG pO2 61.0 mmHg (80.0-100.0) L 12/27/19 12:30 ABG HCO3 26.2 mmol/L (22-26) H 12/27/19 12:30 ABG O2 Saturation 93.0 % (90-100) 12/27/19 12:30 ABG Base Excess 2.6 mmol/L (-2.0-2.0) H 12/27/19 12:30 Valentino Test Na 12/27/19 12:30 A-a Gradient 44.0 mmHg 12/27/19 12:30 FiO2 21.0 12/27/19 12:30 Blood Gas Comments Sebastien well aw 12/27/19 12:30 Sodium 142 mmol/L (136-145) 12/30/19 05:22 Corrected Sodium 144 mmol/L (136-145) 12/30/19 05:22 Potassium 3.8 mmol/L (3.5-5.1) 12/30/19 05:22 Chloride 109 mmol/L (98-107) H 12/30/19 05:22 Carbon Dioxide 24.9 mmol/L (21-32) 12/30/19 05:22 BUN 17 mg/dL (7-18) 12/30/19 05:22 Creatinine 0.92 mg/dL (0.55-1.02) 12/30/19 05:22 Est GFR (MDRD) Af Amer > 60 (>60) 12/30/19 05:22 Est GFR (MDRD) Non-Af > 60 (>60) 12/30/19 05:22 Glucose 186 mg/dL (65-99) H 12/30/19 05:22 POC Glucose (mg/dL) 168 mg/dL (65-99) H 12/30/19 05:54 Calcium 8.4 mg/dL (8.5-10.1) L 12/30/19 05:22 Corrected Calcium 9.9 mg/dL (8.5-10.1) 12/27/19 11:18 Magnesium 2.3 mg/dL (1.7-2.9) 12/29/19 05:42 Total Bilirubin 0.50 mg/dL (0.2-1.0) 12/27/19 11:18 AST 56 Units/L (15-37) H 12/27/19 11:18 ALT 29 Units/L (12-78) 12/27/19 11:18 Alkaline Phosphatase 59 Units/L (46-116) 12/27/19 11:18 Creatine Kinase 474 Units/L (26-192) H 12/27/19 11:18 CK-MB (CK-2) 1.7 ng/mL (0-4.0) 12/27/19 11:18 CK/CKMB % Calc 0.4 % (<4) 12/27/19 11:18 Troponin I 0.33 ng/mL (0-1.5) 12/27/19 11:18 B-Natriuretic Peptide 68.3 pg/mL (0-79) 12/27/19 11:18 Total Protein 8.2 g/dL (6.4-8.2) 12/27/19 11:18 Albumin 2.7 g/dL (3.4-5.0) L 12/27/19 11:18 Globulin 5.5 g/dL (2.5-4.5) H 12/27/19 11:18 Albumin/Globulin Ratio 0.5 Ratio (1.1-2.1) L 12/27/19 11:18 Stool for White Cells Positive (NEGATIVE) A 12/28/19 13:30 Stl C. diff Tox B Gene Negative (NEGATIVE) 12/28/19 13:30 Stl C. diff 027-NAP1-BI Negative (NEGATIVE) 12/28/19 13:30 Influenza Type A (PCR) Positive (NEGATIVE) A 12/27/19 16:32 Influenza Type B (PCR) Negative (NEGATIVE) 12/27/19 16:32 Plan (1) Acute respiratory failure with hypoxia: Status: Acute Plan: Acute hypoxia due to underlying asthma and influenza Currently on 2L NC, titrate as tolerated to keep sats > 92% Last CXR negative for pneumonia or effusions Continue IV abx, duonebs (2) Influenza A: Status: Acute Plan: Continue Tamiflu 75 mg BID x 5 days (3) Asthma exacerbation: Status: Acute Qualifiers: Asthma persistence: unspecified Asthma severity: unspecified severity Qualified Code(s): J45.901 - Unspecified asthma with (acute) exacerbation Plan: Continue solumedrol, levaquin and duonebs continue pulmicort BID sputum culture: normal marianna (4) Diarrhea: Status: Acute Qualifiers: Diarrhea type: unspecified type Qualified Code(s): R19.7 - Diarrhea, unspecified Plan: Slightly better, C diff (-) Campy (-) Stool positive for WBC Will get a CTAP to rule out infectious process, WBC trending up (could also be 2/2 to steroids). (5) Dehydration: Status: Acute Plan: Resolved (6) Diabetes: Status: Acute Qualifiers: Diabetes mellitus complication status: without complication Diabetes mellitus chcf insulin use: without superintendent marine oil terminal use Diabetes mellitus type: type 2 Qualified Code(s): E11.9 - Type 2 diabetes mellitus without complicati ons Plan: on glipizide, continue SSI while inpatient (7) Hypertension: Status: Acute Qualifiers: Hypertension type: essential hypertension Qualified Code(s): I10 - Essential (primary) hypertension Plan: resume home medications except HCTZ
--- NOTE | 2019-12-30 13:03 | CT ---
HISTORYDIARRHEA, ABD PAINSTUDYABDOMEN/PELVIS WITH CONCOMPARISONNoneTECHNIQUEMultiple axial images of the abdomen and pelvis were obtained from the lung bases to the pubic symphysis following oral and IV contrast. The administration of IV contrast. Dose reduction techniques including Automated Exposure Control (AEC) and adjustment of mA and kV were utilized.FINDINGSThe visualized portions of the lung bases are unremarkable . The liver, spleen, pancreas, kidneys, and adrenal glands are unremarkable in their CT appearance. The gallbladder is contracted but otherwise normal.. No significant mesenteric lymphadenopathy or stranding can be observed. The abdominal aorta and IVC are normal there is no aneurysm or retro peritoneal adenopathy. No free fluid or free air is seen within the abdomen. No bowel wall thickening or bowel dilatation is present. The colon is unremarkable.. There is no diverticulosis noted within the sigmoid colon but no signs of diverticulitis.. The urinary bladder is grossly unremarkable. The uterus remains and is normal. Multiple phleboliths are seen in the pelvis. The inguinal femoral regions normal. The bony structures are grossly intact. There is diffuse vacuum disc space narrowing throughout the lumbar spine. The appendix is not identified but there are no inflammatory process ease at the cecal tip.IMPRESSIONDiverticulosis in the sigmoid colon without diverticulitis. The remainder of the colon is normal. There is no evidence of liquid stool to suggest diarrhea. The small bowel is normal.The kidneys liver spleen and pancreas are normal.The gallbladder is contracted but otherwise normal.The retroperitoneum is normal but there is diffuse vacuum disc space narrowing in the lumbar spine.Electronically signed by: LIAN OLIVAS (Dec 30, 2019 13:02:24)
[2019-12-30] MEDS: HumuLIN R SC PRN ×2 (13:11→21:29)
[2019-12-30] MEDS: VSL#3 PO SCH (13:23)
[2019-12-30] MEDS: NEURONTIN CAP 300 MG PO SCH (20:41)
[2019-12-31] MEDS: DUONEB 0.5 MG/3 MG (3 mL) NEB SCH ×6 (01:05→21:10)
[2019-12-31] MEDS: SOLU-Medrol 125 MG VIAL IVP SCH ×2 (05:11→20:59)
[2019-12-31 08:33] LABS: BASOPHILS % (AUTO) 0.2 % (0.2-1.0); HEMATOCRIT 38.2 % (36.0-47.0); HEMOGLOBIN 12.5 g/dL (12.0-16.0); LYMPHOCYTES # (AUTO) 0.4 X10^3/uL (1.3-2.9); MEAN CORPUSCULAR HEMOGLOBIN 28.1 pg (27.0-34.0); MEAN CORPUSCULAR HGB CONC 32.7 g/dL (33.0-35.0); MEAN CORPUSCULAR VOLUME 86.1 fL (80.0-100.0); MEAN PLATELET VOLUME 8.5 fL (7.4-11.0); MONOCYTES # (AUTO) 0.4 x10^3/uL (0.3-0.8); NEUTROPHILS # (AUTO) 10.1 x10^3/uL (2.2-4.8); NEUTROPHILS % (AUTO) 91.8 % (42.0-75.0); PLATELET COUNT 240 X10^3/uL (150.0-450.0); RED BLOOD COUNT 4.44 X10^6/uL (3.5-5.4); RED CELL DISTRIBUTION WIDTH 15.4 % (11.6-16.5)
[2019-12-31 08:43] LABS: BLOOD UREA NITROGEN 16 mg/dL (7-18); CALCIUM 8.5 mg/dL (8.5-10.1); CARBON DIOXIDE 26.1 mmol/L (21-32); CHLORIDE 108 mmol/L (98-107); COR NA(FOR HYPERGLY) 144 mmol/L (136-145); CREATININE 0.98 mg/dL (0.55-1.02); SODIUM 142 mmol/L (136-145); eGFR NON BLACK RACES 60 (>60)
[2019-12-31] MEDS: FOLIC ACID TAB 1 MG PO SCH (08:59)
[2019-12-31] MEDS: APRESOLINE TAB 25 MG PO SCH ×2 (09:00→20:59)
[2019-12-31] MEDS: VSL#3 PO SCH (09:00)
[2019-12-31] MEDS: PROCARDIA XL PO SCH (09:00)
[2019-12-31] MEDS: ALDACTONE TAB 25 MG PO SCH ×2 (09:00→20:59)
[2019-12-31] MEDS: PLAQUENIL PO SCH ×2 (09:01→21:00)
[2019-12-31] MEDS: SINGULAIR TAB 10 MG PO SCH (09:01)
[2019-12-31] MEDS: TAMIFLU PO SCH ×2 (09:01→21:00)
[2019-12-31] MEDS: TOPROL XL PO SCH (09:01)
[2019-12-31] MEDS: PEPCID TAB 20 MG PO SCH ×2 (09:01→21:00)
[2019-12-31 09:02] LABS: PLATELET MORPHOLOGY COMMENT NORMAL (NORMAL)
[2019-12-31] MEDS: LEVAQUIN PREMIX IV 750 MG 750 MG/150 ML BAG IV SCH (09:02)
[2019-12-31] MEDS: LOVENOX INJ 40 MG SYR SC SCH (09:02)
[2019-12-31] MEDS: CELEBREX PO SCH (09:03)
[2019-12-31] MEDS: LOVASTATIN 40 MG PO SCH (09:03)
[2019-12-31] MEDS: XALATAN EACHEYE SCH (09:03)
[2019-12-31] MEDS: PULMICORT NEB TX 0.5 MG NEB SCH ×2 (09:33→21:10)
[2019-12-31] MEDS: HumuLIN R SC PRN (12:55)
--- NOTE | 2019-12-31 13:07 | PCM.PROG ---
Progress Note Progress Note for Day of Date of Exam: 12/31/19 Subjective Subjective: Patient seen at bedside. She is currently on room air, reports increased SOB with exertion. She denies fever or chills. She reports diarrhea has resolved. She has been eating and drinking. PT saw her yesterday and did not have any further recommendations. Past Medical Family Social History Past Med/Fam/Surg Hx: No changes since H&P Allergies: Allergies No Known Drug Allergies Allergy (Verified 02/19/18 13:40) Review of Systems ROS: No change since H&P Vital Signs and I&O's Vital Signs: Temperature 98.0 F Pulse Rate [Left Brachial] 69 Pulse Rate 71 Respiratory Rate 20 Blood Pressure [Left Arm] 162/69 Blood Pressure [Right Arm] 138/70 Blood Pressure 127/63 O2 Sat by Pulse Oximetry 98 Intake and Output: Intake & Output 12/28/19 12/29/19 12/30/19 12/31/19 23:59 23:59 23:59 23:59 Intake Total 2783 / 2783 2598 / 2598 1660 / 1660 0 / 0 Balance 2783 / 2783 2598 / 2598 1660 / 1660 0 / 0 Physical Exam Oriented: Normal Eyes: Normal Nose: Normal Respiratory: Wheezes, Rales and Rhonchi Cardiovascular: Normal and Edema (mild LE edema noted) Auscultation: Bowel Sounds: Normal Tenderness: Normal Skin: Normal Musculoskeletal: Normal Psychiatric: Normal Mood Description: Calm Affect: Normal Speech Pattern: Clear and Appropriate Laboratory and Diagnostics Result Diagrams: 12/31/19 08:08 12/31/19 08:08 Labs: 12/28/19 13:30 Stool Stool Culture - Final 12/28/19 13:30 Stool - Final 12/27/19 11:45 Sputum - Expectorated Sputum Sputum Culture - Final 12/27/19 11:45 Sputum - Expectorated Sputum - Final Laboratory WBC 11.0 X10^3/uL (3.6-10.0) H 12/31/19 08:08 RBC 4.44 X10^6/uL (3.5-5.4) 12/31/19 08:08 Hgb 12.5 g/dL (12.0-16.0) 12/31/19 08:08 Hct 38.2 % (36.0-47.0) 12/31/19 08:08 MCV 86.1 fL (80.0-100.0) 12/31/19 08:08 MCH 28.1 pg (27.0-34.0) 12/31/19 08:08 MCHC 32.7 g/dL (33.0-35.0) L 12/31/19 08:08 RDW 15.4 % (11.6-16.5) 12/31/19 08:08 Plt Count 240 X10^3/uL (150.0-450.0) 12/31/19 08:08 Plt Count Comment Adequate (ADEQUATE) 12/31/19 08:08 MPV 8.5 fL (7.4-11.0) 12/31/19 08:08 Neut % (Auto) 91.8 % (42.0-75.0) H 12/31/19 08:08 Lymph % (Auto) 4.0 % (21.0-51.0) L 12/31/19 08:08 Love % (Auto) 4.0 % (0.0-13.0) 12/31/19 08:08 Eos % (Auto) 0.0 % (0.9-2.9) L 12/31/19 08:08 Baso % (Auto) 0.2 % (0.2-1.0) 12/31/19 08:08 Neut # (Auto) 10.1 x10^3/uL (2.2-4.8) H 12/31/19 08:08 Lymph # (Auto) 0.4 X10^3/uL (1.3-2.9) L 12/31/19 08:08 Love # (Auto) 0.4 x10^3/uL (0.3-0.8) 12/31/19 08:08 Eos # (Auto) 0.0 x10^3/uL (0.0-0.2) 12/31/19 08:08 Baso # (Auto) 0.0 X10^3/uL (0.0-0.1) 12/31/19 08:08 Absolute Nucleated RBC 0.0 /100WBC 12/31/19 08:08 Total Counted 100 12/31/19 08:08 Neutrophils % (Manual) 90 % (39-76) H 12/31/19 08:08 Band Neutrophils % 6 % (0-10) 12/29/19 05:42 Lymphocytes % (Manual) 5 % (13-43) L 12/31/19 08:08 Monocytes % (Manual) 5 % (4-9) 12/31/19 08:08 Eosinophils % (Manual) 2 % (0-6) 12/30/19 05:22 Plt Morphology Comment Normal (NORMAL) 12/31/19 08:08 RBC Morphology Normal (NORMAL) 12/31/19 08:08 Sample Site Left brachial 12/27/19 12:30 ABG pH 7.470 (7.35-7.45) H 12/27/19 12:30 ABG pCO2 36.0 mmHg (35.0-45.0) 12/27/19 12:30 ABG pO2 61.0 mmHg (80.0-100.0) L 12/27/19 12:30 ABG HCO3 26.2 mmol/L (22-26) H 12/27/19 12:30 ABG O2 Saturation 93.0 % (90-100) 12/27/19 12:30 ABG Base Excess 2.6 mmol/L (-2.0-2.0) H 12/27/19 12:30 Valentino Test Na 12/27/19 12:30 A-a Gradient 44.0 mmHg 12/27/19 12:30 FiO2 21.0 12/27/19 12:30 Blood Gas Comments Sebastien well aw 12/27/19 12:30 Sodium 142 mmol/L (136-145) 12/31/19 08:08 Corrected Sodium 144 mmol/L (136-145) 12/31/19 08:08 Potassium 4.0 mmol/L (3.5-5.1) 12/31/19 08:08 Chloride 108 mmol/L (98-107) H 12/31/19 08:08 Carbon Dioxide 26.1 mmol/L (21-32) 12/31/19 08:08 BUN 16 mg/dL (7-18) 12/31/19 08:08 Creatinine 0.98 mg/dL (0.55-1.02) 12/31/19 08:08 Est GFR (MDRD) Af Amer > 60 (>60) 12/31/19 08:08 Est GFR (MDRD) Non-Af 60 (>60) 12/31/19 08:08 Glucose 202 mg/dL (65-99) H 12/31/19 08:08 POC Glucose (mg/dL) 223 mg/dL (65-99) H 12/31/19 11:16 Calcium 8.5 mg/dL (8.5-10.1) 12/31/19 08:08 Corrected Calcium 9.9 mg/dL (8.5-10.1) 12/27/19 11:18 Magnesium 2.3 mg/dL (1.7-2.9) 12/29/19 05:42 Total Bilirubin 0.50 mg/dL (0.2-1.0) 12/27/19 11:18 AST 56 Units/L (15-37) H 12/27/19 11:18 ALT 29 Units/L (12-78) 12/27/19 11:18 Alkaline Phosphatase 59 Units/L (46-116) 12/27/19 11:18 Creatine Kinase 474 Units/L (26-192) H 12/27/19 11:18 CK-MB (CK-2) 1.7 ng/mL (0-4.0) 12/27/19 11:18 CK/CKMB % Calc 0.4 % (<4) 12/27/19 11:18 Troponin I 0.33 ng/mL (0-1.5) 12/27/19 11:18 B-Natriuretic Peptide 68.3 pg/mL (0-79) 12/27/19 11:18 Total Protein 8.2 g/dL (6.4-8.2) 12/27/19 11:18 Albumin 2.7 g/dL (3.4-5.0) L 12/27/19 11:18 Globulin 5.5 g/dL (2.5-4.5) H 12/27/19 11:18 Albumin/Globulin Ratio 0.5 Ratio (1.1-2.1) L 12/27/19 11:18 Stool for White Cells Positive (NEGATIVE) A 12/28/19 13:30 Stl C. diff Tox B Gene Negative (NEGATIVE) 12/28/19 13:30 Stl C. diff 027-NAP1-BI Negative (NEGATIVE) 12/28/19 13:30 Influenza Type A (PCR) Positive (NEGATIVE) A 12/27/19 16:32 Influenza Type B (PCR) Negative (NEGATIVE) 12/27/19 16:32 Plan (1) Acute respiratory failure with hypoxia: Status: Acute Plan: Acute hypoxia due to underlying asthma and influenza Had been using 2-3 L nasal canula, currently on RA. Will ask RT to do a walk- test to assess for oxygen use. Continue IV abx, duonebs (2) Influenza A: Status: Acute Plan: Continue Tamiflu 75 mg BID x 5 days (3) Asthma exacerbation: Status: Acute Qualifiers: Asthma persistence: unspecified Asthma severity: unspecified severity Qualified Code(s): J45.901 - Unspecified asthma with (acute) exacerbation Plan: Continue solumedrol, levaquin and duonebs continue pulmicort BID sputum culture: normal marianna (4) Diarrhea: Status: Acute Qualifiers: Diarrhea type: unspecified type Qualified Code(s): R19.7 - Diarrhea, un specified Plan: Diarrhea resolved, C diff (-) Campy (-) CTAP negative for acute infection, WBC trending down. (5) Dehydration: Status: Acute Plan: Resolved (6) Diabetes: Status: Acute Qualifiers: Diabetes mellitus complication status: without complication Diabetes mellitus terminal carman insulin use: without half-way use Diabetes mellitus type: type 2 Qualified Code(s): E11.9 - Type 2 diabetes mellitus without complications Plan: on glipizide, continue SSI while inpatient (7) Hypertension: Status: Acute Qualifiers: Hypertension type: essential hypertension Qualified Code(s): I10 - Essential (primary) hypertension Plan: resume HCTZ
[2019-12-31] MEDS: HYDROCHLOROTHIAZIDE 12.5 MG CAP PO SCH (14:42)
[2019-12-31] MEDS: NEURONTIN CAP 300 MG PO SCH (20:59)
[2020-01-01] MEDS: DUONEB 0.5 MG/3 MG (3 mL) NEB SCH ×3 (01:20→09:31)
[2020-01-01 06:37] LABS: BASOPHILS % (AUTO) 0 % (0.2-1.0); HEMATOCRIT 36.7 % (36.0-47.0); HEMOGLOBIN 12.2 g/dL (12.0-16.0); LYMPHOCYTES # (AUTO) 0.5 X10^3/uL (1.3-2.9); LYMPHOCYTES % (AUTO) 7.1 % (21.0-51.0); MEAN CORPUSCULAR HEMOGLOBIN 28.2 pg (27.0-34.0); MEAN CORPUSCULAR HGB CONC 33.1 g/dL (33.0-35.0); MEAN CORPUSCULAR VOLUME 85.2 fL (80.0-100.0); MEAN PLATELET VOLUME 8.4 fL (7.4-11.0); MONOCYTES # (AUTO) 0.5 x10^3/uL (0.3-0.8); MONOCYTES % (AUTO) 6.3 % (0.0-13.0); NEUTROPHILS # (AUTO) 6.3 x10^3/uL (2.2-4.8); NEUTROPHILS % (AUTO) 86.6 % (42.0-75.0); PLATELET COUNT 241 X10^3/uL (150.0-450.0); RED BLOOD COUNT 4.31 X10^6/uL (3.5-5.4); RED CELL DISTRIBUTION WIDTH 14.9 % (11.6-16.5); WHITE BLOOD COUNT 7.3 X10^3/uL (3.6-10.0)
[2020-01-01 07:00] LABS: BLOOD UREA NITROGEN 17 mg/dL (7-18); CALCIUM 8.7 mg/dL (8.5-10.1); CARBON DIOXIDE 28.6 mmol/L (21-32); CHLORIDE 107 mmol/L (98-107); COR NA(FOR HYPERGLY) 143 mmol/L (136-145); CREATININE 0.87 mg/dL (0.55-1.02); SODIUM 141 mmol/L (136-145); eGFR NON BLACK RACES > 60 (>60)
[2020-01-01] MEDS: ALDACTONE TAB 25 MG PO SCH (09:22)
[2020-01-01] MEDS: PEPCID TAB 20 MG PO SCH (09:23)
[2020-01-01] MEDS: CELEBREX PO SCH (09:23)
[2020-01-01] MEDS: VSL#3 PO SCH (09:23)
[2020-01-01] MEDS: SINGULAIR TAB 10 MG PO SCH (09:23)
[2020-01-01] MEDS: APRESOLINE TAB 25 MG PO SCH (09:24)
[2020-01-01] MEDS: PROCARDIA XL PO SCH (09:24)
[2020-01-01] MEDS: TOPROL XL PO SCH (09:24)
[2020-01-01] MEDS: FOLIC ACID TAB 1 MG PO SCH (09:24)
[2020-01-01] MEDS: HYDROCHLOROTHIAZIDE 12.5 MG CAP PO SCH (09:24)
[2020-01-01] MEDS: LOVENOX INJ 40 MG SYR SC SCH (09:25)
[2020-01-01] MEDS: PLAQUENIL PO SCH (09:25)
[2020-01-01] MEDS: SOLU-Medrol 125 MG VIAL IVP SCH (09:26)
[2020-01-01] MEDS: XALATAN EACHEYE SCH (09:30)
[2020-01-01] MEDS: PULMICORT NEB TX 0.5 MG NEB SCH (09:31)
--- NOTE | 2020-01-01 09:46 | W.DIS.FURT ---
Summary of Discharge Discharge Summary of Date Date of Exam: 01/01/20 Admission Date Date of Admission: 12/27/19 Admission Diagnosis Hospital Course: Ms. Rincon is a 69y/o female who presented with productive cough, wheezing and SOB. Patient has been exposed to multiple family members with flu including daughter and grand-daughter. She reports increased SOB and productive cough with green sputum. She reports hx of asthma. ED work up included CXR which was negative for infection. She was hypoxic on admission requiring 2 L nasal canula, ABG showed 7.47/36/61/26. She was admitted for Asthma exacerbation with bronchitis and started on solumedrol and levaquin. Patient's flu test was positive so Tamiflu was started. Her respiratory status continued to improve with Duonebs, pulmicort, IV abx and steroids. She was also having nausea, abdominal pain and diarrhea. CTAP did not show any acute infection proccess. Stool studies including C diff , campy were negative. Her diarrhea gradually resolved and she was tolerating diet. She was evalauted by PT and Respiratory therapist and did not need oxygen at rest or with ambulation. She was stable for discharge. She will follow up with PCP in 1 week. Vital Signs: Vital Signs (72 hours) 12/29/19 12:00 12/29/19 16:00 12/29/19 20:00 Temperature 98.1 F 98.1 F 98.2 F Pulse Rate Pulse Rate [Left Brachial] 73 74 66 Respiratory Rate 24 24 20 Blood Pressure [Left Arm] 152/70 138/66 128/61 O2 Sat by Pulse Oximetry 99 99 100 12/29/19 21:03 12/30/19 00:00 12/30/19 04:00 Temperature 97.6 F 97.7 F Pulse Rate 64 Pulse Rate [Left Brachial] 63 67 Respiratory Rate 18 18 Blood Pressure [Left Arm] 133/74 147/78 O2 Sat by Pulse Oximetry 94 L 100 100 12/30/19 08:00 12/30/19 09:07 12/30/19 12:00 Temperature 98.2 F 97.5 F L Pulse Rate 63 Pulse Rate [Left Brachial] 64 68 Respiratory Rate 22 20 Blood Pressure [Left Arm] 148/65 146/65 O2 Sat by Pulse Oximetry 95 98 100 12/30/19 16:00 02/03/20 20:00 12/30/19 20:45 Temperature 98.3 F 98.1 F Pulse Rate 59 L Pulse Rate [Left Brachial] 68 61 Respiratory Rate 18 16 Blood Pressure [Left Arm] 145/71 150/67 O2 Sat by Pulse Oximetry 96 100 98 12/31/19 00:00 12/31/19 04:00 12/31/19 08:00 Temperature 97.8 F 97.9 F 98.0 F Pulse Rate Pulse Rate [Left Brachial] 56 L 54 L 57 L Respiratory Rate 14 14 22 Blood Pressure [Left Arm] 165/75 169/89 167/77 O2 Sat by Pulse Oximetry 100 100 100 12/31/19 09:33 12/31/19 12:00 12/31/19 12:22 Temperature 98.0 F Pulse Rate 57 L 71 Pulse Rate [Left Brachial] 69 Respiratory Rate 20 Blood Pressure [Left Arm] 162/69 O2 Sat by Pulse Oximetry 99 96 98 12/31/19 16:00 12/31/19 18:00 12/31/19 20:00 Temperature 98.2 F 97.7 F Pulse Rate 66 Pulse Rate [Left Brachial] 59 L 70 Respiratory Rate 20 16 Blood Pressure [Left Arm] 136/63 137/65 O2 Sat by Pulse Oximetry 98 95 95 12/31/19 21:11 01/01/20 00:00 01/01/20 04:00 Temperature 98.3 F 97.8 F Pulse Rate 68 Pulse Rate [Left Brachial] 74 62 Respiratory Rate 16 12 Blood Pressure [Left Arm] 135/71 152/70 O2 Sat by Pulse Oximetry 96 99 97 01/01/20 09:31 Temperature Pulse Rate 67 Pulse Rate [Left Brachial] Respiratory Rate Blood Pressure [Left Arm] O2 Sat by Pulse Oximetry 97 Labs: Laboratory Last Values WBC 7.3 X10^3/uL (3.6-10.0) 01/01/20 05:37 RBC 4.31 X10^6/uL (3.5-5.4) 01/01/20 05:37 Hgb 12.2 g/dL (12.0-16.0) 01/01/20 05:37 Hct 36.7 % (36.0-47.0) 01/01/20 05:37 MCV 85.2 fL (80.0-100.0) 01/01/20 05:37 MCH 28.2 pg (27.0-34.0) 01/01/20 05:37 MCHC 33.1 g/dL (33.0-35.0) 01/01/20 05:37 RDW 14.9 % (11.6-16.5) 01/01/20 05:37 Plt Count 241 X10^3/uL (150.0-450.0) 01/01/20 05:37 Plt Count Comment Adequate (ADEQUATE) 12/31/19 08:08 MPV 8.4 fL (7.4-11.0) 01/01/20 05:37 Neut % (Auto) 86.6 % (42.0-75.0) H 01/01/20 05:37 Lymph % (Auto) 7.1 % (21.0-51.0) L 01/01/20 05:37 Ida % (Auto) 6.3 % (0.0-13.0) 01/01/20 05:37 Eos % (Auto) 0.0 % (0.9-2.9) L 01/01/20 05:37 Baso % (Auto) 0 % (0.2-1.0) L 01/01/20 05:37 Neut # (Auto) 6.3 x10^3/uL (2.2-4.8) H 01/01/20 05:37 Lymph # (Auto) 0.5 X10^3/uL (1.3-2.9) L 01/01/20 05:37 Ida # (Auto) 0.5 x10^3/uL (0.3-0.8) 01/01/20 05:37 Eos # (Auto) 0.0 x10^3/uL (0.0-0.2) 01/01/20 05:37 Baso # (Auto) 0.0 X10^3/uL (0.0-0.1) 01/01/20 05:37 Absolute Nucleated RBC 0.0 /100WBC 01/01/20 05:37 Total Counted 100 12/31/19 08:08 Neutrophils % (Manual) 90 % (39-76) H 12/31/19 08:08 Band Neutrophils % 6 % (0-10) 12/29/19 05:42 Lymphocytes % (Manual) 5 % (13-43) L 12/31/19 08:08 Monocytes % (Manual) 5 % (4-9) 12/31/19 08:08 Eosinophils % (Manual) 2 % (0-6) 12/30/19 05:22 Plt Morphology Comment Normal (NORMAL) 12/31/19 08:08 RBC Morphology Normal (NORMAL) 12/31/19 08:08 Sample Site Left brachial 12/27/19 12:30 ABG pH 7.470 (7.35-7.45) H 12/27/19 12:30 ABG pCO2 36.0 mmHg (35.0-45.0) 12/27/19 12:30 ABG pO2 61.0 mmHg (80.0-100.0) L 12/27/19 12:30 ABG HCO3 26.2 mmol/L (22-26) H 12/27/19 12:30 ABG O2 Saturation 93.0 % (90-100) 12/27/19 12:30 ABG Base Excess 2.6 mmol/L (-2.0-2.0) H 12/27/19 12:30 Valentino Test Na 12/27/19 12:30 A-a Gradient 44.0 mmHg 12/27/19 12:30 FiO2 21.0 12/27/19 12:30 Blood Gas Comments Sebastien well aw 12/27/19 12:30 Sodium 141 mmol/L (136-145) 01/01/20 05:37 Corrected Sodium 143 mmol/L (136-145) 01/01/20 05:37 Potassium 4.1 mmol/L (3.5-5.1) 01/01/20 05:37 Chloride 107 mmol/L (98-107) 01/01/20 05:37 Carbon Dioxide 28.6 mmol/L (21-32) 01/01/20 05:37 BUN 17 mg/dL (7-18) 01/01/20 05:37 Creatinine 0.87 mg/dL (0.55-1.02) 01/01/20 05:37 Est GFR (MDRD) Af Amer > 60 (>60) 01/01/20 05:37 Est GFR (MDRD) Non-Af > 60 (>60) 01/01/20 05:37 Glucose 185 mg/dL (65-99) H 01/01/20 05:37 POC Glucose (mg/dL) 154 mg/dL (65-99) H 12/31/19 16:39 Calcium 8.7 mg/dL (8.5-10.1) 01/01/20 05:37 Corrected Calcium 9.9 mg/dL (8.5-10.1) 12/27/19 11:18 Magnesium 2.3 mg/dL (1.7-2.9) 12/29/19 05:42 Total Bilirubin 0.50 mg/dL (0.2-1.0) 12/27/19 11:18 AST 56 Units/L (15-37) H 12/27/19 11:18 ALT 29 Units/L (12-78) 12/27/19 11:18 Alkaline Phosphatase 59 Units/L (46-116) 12/27/19 11:18 Creatine Kinase 474 Units/L (26-192) H 12/27/19 11:18 CK-MB (CK-2) 1.7 ng/mL (0-4.0) 12/27/19 11:18 CK/CKMB % Calc 0.4 % (<4) 12/27/19 11:18 Troponin I 0.33 ng/mL (0-1.5) 12/27/19 11:18 B-Natriuretic Peptide 68.3 pg/mL (0-79) 12/27/19 11:18 Total Protein 8.2 g/dL (6.4-8.2) 12/27/19 11:18 Albumin 2.7 g/dL (3.4-5.0) L 12/27/19 11:18 Globulin 5.5 g/dL (2.5-4.5) H 12/27/19 11:18 Albumin/Globulin Ratio 0.5 Ratio (1.1-2.1) L 12/27/19 11:18 Stool for White Cells Positive (NEGATIVE) A 12/28/19 13:30 Stl C. diff Tox B Gene Negative (NEGATIVE) 12/28/19 13:30 Stl C. diff [id number] Negative (NEGATIVE) 12/28/19 13:30 Influenza Type A (PCR) Positive (NEGATIVE) A 12/27/19 16:32 Influenza Type B (PCR) Negative (NEGATIVE) 12/27/19 16:32 Reason For Visit: ASTHMA EXACERBATION,HYPOXIA,LLL PNEUMONIA Discharge Date Discharge Date: 01/01/20 Discharge Diagnosis All Active Problems (Updated 12/28/19 @ 10:35 by Brittany Valenzuela) Diabetes (Acute) Acute respiratory failure with hypoxia (Acute) Dehydration (Acute) Diarrhea (Acute) Asthma exacerbation (Acute) Influenza A (Acute) Upper respiratory infection (Acute) Chest pain (Acute) Hypertension (Acute) Pain and swelling of lower extremity (Acute) Acute hypokalemia (Acute) Edema (Acute) Cluster headache (Acute) Benign essential HTN (Acute) Plan of Treatment: Continue with present treatment and follow up plan. Pt is to keep follow up appointment as instructed and take medications as ordered. Discharge Medications Discharge Medications: No Known Drug Allergies Allergy (Verified 02/19/18 13:40) CONTINUE taking the following medications albuterol sulfate [ProAir HFA] 2 puff INHALATION Q4-6H PRN 12/27/19 [History] celecoxib 200 mg PO DAILY 12/27/19 [History] folic acid 1 mg PO DAILY 12/27/19 [History] hydralazine 25 mg PO BID 12/27/19 [History] hydrochlorothiazide 12.5 mg PO DAILY 12/27/19 [History] methotrexate sodium 12.5 mg PO WEEKLY 12/27/19 [History] metoprolol succinate 25 mg PO DAILY 12/27/19 [History] montelukast 10 mg PO DAILY 12/27/19 [History] New Prescriptions methylprednisolone [Medrol ([place])] 4 mg PO PER PKG DIR #21 ea 01/01/20 [Rx] nifedipine 60 mg PO DAILY 30 Days #30 tab 01/01/20 [Rx] Follow up and Referral Follow Up: 1 Week (PCP) Discharge Disposition Discharge Disposition: Home
[2020-01-01] MEDS: LOVASTATIN 40 MG PO SCH (10:03)
[2020-01-01 10:26] VITALS: BP 183/87
== END 2020-01-01 11:05 | disposition home or self-care (01) | DRG 203 ==
LOC: ER 10:33 → MED/SURG 10:33
PROVIDERS: ADMIT Internal Medicine; ATTEND Internal Medicine
DX: E86.0 Dehydration; R06.02 Shortness of breath; R19.7 Diarrhea, unspecified; J20.9 Acute bronchitis, unspecified; J10.1 Influenza due to other identified influenza virus with other respiratory manifestations; I10 Essential (primary) hypertension; J45.901 Unspecified asthma with (acute) exacerbation; E11.65 Type 2 diabetes mellitus with hyperglycemia
CPT/HCPCS: 36415; 36600; 71010; 71020; 71045; 71046; 74177; 80048; 80053; 82550; 82553; 82803; 83630; 83735; 83880; 84132; 84484; 85025; 87045; 87070; 87205; 87427; 87449; 87493; 87502; 87899; 93005; 94640; 94760; 96365; 96367; 96372; 96374; 96375; 97161; 99284; A4216; A4222; G0378; G9035; J1650; J1815; J1956; J2930; J3475; J7030; J7620; J7626